=== PATIENT | female | born 1985 | race Caucasian/White ===

== ENCOUNTER 2019-11-25 10:18 | Observation (INO) ==
[2019-11-25] MEDS ORDERED: HYDROmorphone INJ 0.5 MG/0.5 ML SYR IV STA ×2 (11:15→15:48)
[2019-11-25] MEDS ORDERED: SODIUM CHLORIDE 0.9% 1000ML 1,000 ML IV ONE (11:15)
[2019-11-25] MEDS ORDERED: ONDANSETRON INJ 2 MG/ML 2 ML VIAL IV STA (11:15)
--- NOTE | 2019-11-25 11:22 | Emergency Department Note ---
History of Present Illness General Chief complaint: Kidney Stone Stated complaint: KIDNEY STONES History of Present Illness Maximum Pain Intensity: 10 This patient is a 34-year-old female who presents ambulatory to the emergency department for evaluation of severe bilateral flank pain for approximately 1 week. Patient was seen in [facility]. She was diagnosed with a kidney stone. A stent was placed on the left. She was told that she was going to have "surgery" on December 06. She was discharged home with Percocet. She has been taking the Percocet with no relief of the pain. She reports hematuria. No fever or chills. No nausea. Any movement seems to make the pain worse. Home Medications Home Medications Medication Instructions Recorded Confirmed Type L.acid-L.casei-B.bif-B.nicki-FOS 1 cap PO TID 11/25/19 11/25/19 History [Probiotic Blend] cholecalciferol (vitamin D3) 1,000 unit PO QDD 11/25/19 11/25/19 History [Vitamin D3] digestive enzymes 1 cap PO TID 11/25/19 11/25/19 History iron-vit C-vit [id number] acid 1 tab PO QAM 11/25/19 11/25/19 History oxycodone-acetaminophen [Percocet] 1 tab PO UD PRN 11/25/19 11/25/19 History phenazopyridine [Pyridium] 100 mg PO TID PRN 11/25/19 11/25/19 History Allergies Allergy/AdvReac Type Severity Reaction Status Date / Time iodine Allergy Unknown SKIN BLEEDS Unverified 11/25/19 13:12 nitrofurantoin Allergy Unknown HIVES Unverified 11/25/19 13:12 Past Med/Surg History Medical History No pertinent past medical history Social History Preferred Language: Estonian Communication Ability: Effective 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 Beliefs That Will Affect Care: None Current Living Situation: Family Other Information That Helps Us Care for You: No Feels Safe at Home: Yes Safety Concerns: Feels Safe At This Time Smoking Status: Light tobacco smoker Tobacco Type: cigarettes ; Cigarettes Per Day: 2-3 ; Do You Dip or Chew Tobacco: No ; Hx Alcohol Use: Yes Alcohol type: beer, wine and hard liquor Hx Substance Use: No Review of Systems A total of 10 systems reviewed and were otherwise negative Physical Exam Vital Signs Vital Signs - 24 hr 11/25/19 10:53 11/25/19 11:40 11/25/19 13:10 Temperature 36.9 C Temperature Source Oral Pulse Rate 101 H Pulse Rate [Left Finger] 73 65 Respiratory Rate 16 18 18 Blood Pressure [Left Arm] 139/89 128/81 Blood Pressure Mean [Left Arm] 105 96 Pulse Oximetry 100 100 99 Oxygen Delivery Method Room Air Room Air Room Air Sepsis Recent Fever Within 48 Hours No Sepsis New/Unexplained Change in Mental Status No Sepsis Action Taken by Nursing No Action Required 11/25/19 14:46 Temperature Temperature Source Pulse Rate Pulse Rate [Left Finger] 77 Respiratory Rate 18 Blood Pressure [Left Arm] 129/85 Blood Pressure Mean [Left Arm] 99 Pulse Oximetry 98 Oxygen Delivery Method Room Air Sepsis Recent Fever Within 48 Hours Sepsis New/Unexplained Change in Mental Status Sepsis Action Taken by Nursing Constitutional WD/WN, vitals as above Eyes EOM intact bilaterally ENMT external ear and nose normal, oropharynx normal Neck trachea midline Respiratory normal respiratory effort, lungs clear to auscultation Cardiovascular RRR, no murmur, no edema Gastrointestinal (Abdomen) CVA tenderness noted left greater than right. No guarding or rebound tenderness of the abdomen. Bowel sounds present in all 4 quadrants. Musculoskeletal no cyanosis or clubbing, extremities motor strength 5/5 Skin no rashes, warm and dry Neurologic Alert and oriented x3. No focal motor deficits. Psychiatric Acting appropriately Course Course Patient was seen and examined Vital signs including blood pressure were reviewed medications list was verified with patient Labs were obtained, and a saline lock was established Medications ordered Imaging performed and reviewed. Outside records reviewed. The case was discussed with urology The patient was reassessed and still uncomfortable. She was ordered more medications. We reviewed her results. She voiced understanding, and was in agreement with the disposition plan. The case was then discussed with the hospitalist service. They kindly agreed to evaluate the patient for likely inpatient management. Administered Medications Acetaminophen (Tylenol) 1,000 mg PO Q8H IRENE Stop: 12/25/19 16:29 Last Admin: 11/25/19 17:20 Dose: 1,000 mg Documented by: [id number] Bisacodyl (Dulcolax) 5 mg PO DAILY [facility] Stop: 12/25/19 16:04 Last Admin: 11/25/19 16:59 Dose: 5 mg Documented by: [id number] Lactated Ringer's (Lr) 1,000 mls @ 150 mls/hr IV .Q6H40M [facility] Stop: 11/26/19 16:14 Last Admin: 11/25/19 17:00 Dose: 150 mls/hr Documented by: [id number] Ketorolac Tromethamine (Toradol) 30 mg IV Q6H PRN PRN Reason: Pain Stop: 11/30/19 14:50 Last Admin: 11/25/19 20:31 Dose: 30 mg Documented by: [id number] Ondansetron HCl (Zofran) 4 mg IV Q4H PRN PRN Reason: Nausea And Vomiting Stop: 12/25/19 14:50 Last Admin: 11/25/19 20:20 Dose: 4 mg Documented by: [id number] Phenazopyridine HCl (Pyridium) 100 mg PO TID [facility] Stop: 12/25/19 15:14 Last Admin: 11/25/19 17:20 Dose: 100 mg Documented by: [id number] Tamsulosin HCl (Flomax) 0.4 mg PO QAM [facility] Stop: 12/25/19 14:59 Last Admin: 11/25/19 17:20 Dose: 0.4 mg Documented by: [id number] Discontinued Medications Bisacodyl (Dulcolax) 10 mg [place] NOW STA Stop: 11/25/19 15:22 Last Admin: 11/25/19 15:51 Dose: 10 mg Documented by: [id number] Hydromorphone HCl (Dilaudid) 0.5 mg IV NOW STA Stop: 11/25/19 11:16 Last Admin: 11/25/19 11:29 Dose: 0.5 mg Documented by: [id number] Hydromorphone HCl (Dilaudid) Confirm Administered Dose 1 mg .ROUTE .STK-MED ONE Stop: 11/25/19 15:11 Last Admin: 11/25/19 15:12 Dose: 1 mg Documented by: [id number] Hydromorphone HCl (Dilaudid) 0.5 mg IV NOW STA Stop: 11/25/19 15:49 Last Admin: 11/25/19 16:59 Dose: 0.5 mg Documented by: [id number] Sodium Chloride (Nss 1000ml) 1,000 mls @ 999 mls/hr IV .Q1H1M ONE Stop: 11/25/19 12:15 Last Infusion: 11/25/19 11:30 Dose: 0 mls/hr Documented by: [id number] Admin: 11/25/19 11:29 Dose: 999 mls/hr Documented by: [id number] Ketorolac Tromethamine (Toradol) 30 mg IV NOW STA Stop: 11/25/19 12:08 Last Admin: 11/25/19 12:14 Dose: 30 mg Documented by: [id number] Ondansetron HCl (Zofran) 4 mg IV NOW STA Stop: 11/25/19 11:16 Last Admin: 11/25/19 11:29 Dose: 4 mg Documented by: [id number] Phenazopyridine HCl (Pyridium) 200 mg PO NOW STA Stop: 11/25/19 15:49 Last Admin: 11/25/19 17:20 Dose: Not Given Documented by: [id number] Medical Decision Making Medical Records Attestation: I reviewed the patient's medical records. Home Medications Current Medication List: was personally reviewed by me Laboratory Data Attestation: I reviewed the patient's lab results. Result diagrams: 11/25/19 11:38 11/25/19 11:38 Lab Results 11/25/19 11/25/19 11/25/19 Range/Units 11:38 11:38 11:38 WBC 5.26 (4.8-10.8) K/uL RBC 4.21 (4.2-5.4) M/uL Hgb 12.0 (12.0-16.0) g/dL Hct 36.5 L (37-47) % MCV 86.7 (80-100) fL MCH 28.5 (25-34) pg MCHC 32.9 (32-36) g/dL RDW Std Deviation 40.8 (36.4-46.3) fL RDW Coeff of Marixa 12.8 (11.5-14.5) % Plt Count 200 (130-400) K/uL MPV 10.1 (7.4-10.4) fL Immature Gran % (Auto) 0.4 % Neut % (Auto) 50.8 % Lymph % (Auto) 30.8 % Dewitt % (Auto) 14.4 % Eos % (Auto) 3.0 % Baso % (Auto) 0.6 % Immature Gran # (Auto) 0.02 (0.00-0.02) K/uL Neut # (Auto) 2.67 (1.4-6.5) K/uL Lymph # (Auto) 1.62 (1.2-3.4) K/uL Dewitt # (Auto) 0.76 H (0.11-0.59) K/uL Eos # (Auto) 0.16 (0-0.5) K/uL Baso # (Auto) 0.03 (0-0.2) K/uL Sodium 138 (136-145) mmol/L Potassium 3.7 (3.5-5.1) mmol/L Chloride 109 H (98-107) mmol/L Carbon Dioxide 22 (21-32) mmol/L Anion Gap 7.0 (3-11) BUN 7 (7-18) mg/dl Creatinine 0.60 (0.6-1.2) mg/dl Est Cr Clr Drug Dosing 129.8 ml/min Est GFR ( Amer) 138.8 Est GFR (Non-Af Amer) 119.8 BUN/Creatinine Ratio 11.9 (10-20) Glucose 97 (70-99) mg/dl Calcium 8.9 (8.5-10.1) mg/dl Total Bilirubin 0.3 (0.2-1) mg/dl AST 15 (15-37) U/L ALT 21 (12-78) U/L Alkaline Phosphatase 66 (45-117) U/L Total Protein 7.8 (6.4-8.2) gm/dl Albumin 3.8 (3.4-5.0) gm/dl Globulin 4.0 (2.5-4.0) gm/dl Albumin/Globulin Ratio 1.0 (0.9-2) Urine Color Urine Appearance (Clear) Urine pH (4.5-7.5) Ur Specific [place] (1.000-1.030) Urine Protein (Negative) Urine Glucose (UA) (Negative) Urine Ketones (Negative) Urine Blood (Negative) Urine Nitrite (Negative) Urine Bilirubin (Negative) Urine Urobilinogen (Negative) Ur Leukocyte Esterase (Negative) Urine WBC (Auto) (0-5) /hpf Urine RBC (Auto) (0-4) /hpf U Hyaline Cast (Auto) (0-5) /lpf U Epithel Cells (Auto) (0-5) /lpf Urine Bacteria (Auto) (Negative) Urine Test Negative (Negative) 11/25/19 Range/Units 11:38 WBC (4.8-10.8) K/uL RBC (4.2-5.4) M/uL Hgb (12.0-16.0) g/dL Hct (37-47) % MCV (80-100) fL MCH (25-34) pg MCHC (32-36) g/dL RDW Std Deviation (36.4-46.3) fL RDW Coeff of Marixa (11.5-14.5) % Plt Count (130-400) K/uL MPV (7.4-10.4) fL Immature Gran % (Auto) % Neut % (Auto) % Lymph % (Auto) % Dewitt % (Auto) % Eos % (Auto) % Baso % (Auto) % Immature Gran # (Auto) (0.00-0.02) K/uL Neut # (Auto) (1.4-6.5) K/uL Lymph # (Auto) (1.2-3.4) K/uL Dewitt # (Auto) (0.11-0.59) K/uL Eos # (Auto) (0-0.5) K/uL Baso # (Auto) (0-0.2) K/uL Sodium (136-145) mmol/L Potassium (3.5-5.1) mmol/L Chloride (98-107) mmol/L Carbon Dioxide (21-32) mmol/L Anion Gap (3-11) BUN (7-18) mg/dl Creatinine (0.6-1.2) mg/dl Est Cr Clr Drug Dosing ml/min Est GFR ( Amer) Est GFR (Non-Af Amer) BUN/Creatinine Ratio (10-20) Glucose (70-99) mg/dl Calcium (8.5-10.1) mg/dl Total Bilirubin (0.2-1) mg/dl AST (15-37) U/L ALT (12-78) U/L Alkaline Phosphatase (45-117) U/L Total Protein (6.4-8.2) gm/dl Albumin (3.4-5.0) gm/dl Globulin (2.5-4.0) gm/dl Albumin/Globulin Ratio (0.9-2) Urine Color Dark Yellow Urine Appearance Clear (Clear) Urine pH 6.5 (4.5-7.5) Ur Specific [place] 1.008 (1.000-1.030) Urine Protein Negative (Negative) Urine Glucose (UA) Negative (Negative) Urine Ketones Negative (Negative) Urine Blood 3+ H (Negative) Urine Nitrite Positive A (Negative) Urine Bilirubin Negative (Negative) Urine Urobilinogen Negative (Negative) Ur Leukocyte Esterase 1+ H (Negative) Urine WBC (Auto) 1-5 (0-5) /hpf Urine RBC (Auto) 10-30 H (0-4) /hpf U Hyaline Cast (Auto) 0 (0-5) /lpf U Epithel Cells (Auto) 20-30 H (0-5) /lpf Urine Bacteria (Auto) Negative (Negative) Urine Test (Negative) Imaging Data Attestation: I personally reviewed and interpreted this imaging study as follows: Radiologist's Impression: CT abdomen and pelvis without contrast 1. There is a 7 mm stone within the proximal left ureter adjacent to the ureteral stent. However, no left-sided hydronephrosis. 2. Bilateral nephrolithiasis. 3. The left ureteral stent appears in good position. 4. No definite bowel wall thickening or obstruction. ACT 112: Negative or not required by law. Electronically signed by: Rex Han M.D. 11/25/2019 12:47 PM Dictated: 11/25/19 1240 Transcribed: 11/25/19 1240 Prescription Drug Monitoring [place] Drug Monitoring Program reviewed and no issues identified Blood Pressure Blood Pressure Findings: Normal blood pressure MDM Narrative This patient is a 34-year-old female who presents to the emergency department with ongoing flank pain. On exam, she was significantly uncomfortable with CVA tenderness. She was not febrile. Her labs are fairly unremarkable. I did not find antibiotic therapy necessary as the patient does not have any leukocytosis. She is not febrile. . Imaging was performed and reviewed. The patient has a left ureteral stent, in addition to a large proximal stone. The patient's pain was not controlled in the emergency department. I did not feel comfortable sending her home. Urology and the hospitalist service were consulted for likely inpatient management. Impression & Plan Calculus, ureteral Discharge Plan Visit Data *Final* Discharge Date/Time: 11/25/19 15:56 Chief Complaint: Kidney Stone Stated Complaint: KIDNEY STONES ED Provider: Mark Richards ED Midlevel Provider: Faina Marie Discharge Problem: Calculus, ureteral Patient Disposition: Admitted As Inpatient Condition: Fair Discharge Instructions Interventions: ED Discharge Assessment Last Done: 11/25/19 15:56
[2019-11-25 11:51] LABS: Basophils # (auto) 0.03 K/uL (0-0.2); Basophils % (auto) 0.6 %; Eosinophils # (auto) 0.16 K/uL (0-0.5); Hematocrit (blood only) 36.5 % (37-47); Immature Granulocytes # (auto) 0.02 K/uL (0.00-0.02); Immature Granulocytes % (auto) 0.4 %; Lymphocytes # (auto) 1.62 K/uL (1.2-3.4); Lymphocytes % (auto) 30.8 %; Mean Corpuscular Hemoglobin 28.5 pg (25-34); Mean Corpuscular Hgb Conc 32.9 g/dL (32-36); Mean Corpuscular Volume 86.7 fL (80-100); Mean Platelet Volume 10.1 fL (7.4-10.4); Monocytes # (auto) 0.76 K/uL (0.11-0.59); Monocytes % (auto) 14.4 %; Neutrophils # (auto) 2.67 K/uL (1.4-6.5); Neutrophils % (auto) 50.8 %; Platelet Count 200 K/uL (130-400); RDW Coefficient of Variation 12.8 % (11.5-14.5); RDW Standard Deviation 40.8 fL (36.4-46.3); Red Blood Count 4.21 M/uL (4.2-5.4); White Blood Count 5.26 K/uL (4.8-10.8)
[2019-11-25 11:52] LABS: Pregnancy Test, Urine Negative (Negative)
[2019-11-25 11:54] LABS: Appearance Urine Clear (Clear); Bilirubin Urine Negative (Negative); Blood Urine 3+ (Negative); Color Urine Dark Yellow; Glucose Urine UA Negative (Negative); Ketones Urine Negative (Negative); Leukocyte Esterase Urine 1+ (Negative); Nitrite Urine Positive (Negative); Protein Urine Negative (Negative); Specific Gravity Urine 1.008 (1.000-1.030); Urobilinogen Urine Negative (Negative); pH Urine 6.5 (4.5-7.5)
[2019-11-25] MEDS ORDERED: KETOROLAC 30 MG/ML VIAL IV STA (12:07)
[2019-11-25 12:08] LABS: Albumin Level 3.8 gm/dl (3.4-5.0); BUN Creatinine Ratio 11.9 (10-20); Calcium 8.9 mg/dl (8.5-10.1); Creatinine Clr Calc Pharmacy 129.8 ml/min; Est GFR (African American) 138.8; Est GFR (Non-African American) 119.8; Potassium 3.7 mmol/L (3.5-5.1)
[2019-11-25 12:11] LABS: Bilirubin,Total 0.3 mg/dl (0.2-1); Total Protein 7.8 gm/dl (6.4-8.2)
[2019-11-25 12:39] LABS: Bacteria Urine Automated Negative (Negative); Cast Urine Automated 0 /lpf (0-5); Epithelial Cell Urine Auto 20-30 /lpf (0-5)
--- NOTE | 2019-11-25 12:48 | CT Scan Report ---
ABDOMEN AND PELVIS CT WITHOUT CONTRAST CT DOSE: 908.04 mGycm HISTORY: flank pain hx stones/stent TECHNIQUE: Multiaxial CT images of the abdomen and pelvis were performed without contrast. A dose lo wering technique was utilized adhering to the principles of ALARA. COMPARISON STUDY: Abdomen and pelvis CT 04/14/2018. FINDINGS: Faint tiny subpleural densities within the right lower lobe. This is nonspecific but favors scarring or atelectasis. The left lung base is clear. No pneumoperitoneum. No pneumatosis. Left-side d sacroiliac screws are again noted. Tiny fat-containing umbilical hernia. The unenhanced liver, gall bladder, spleen, adrenal glands, and pancreas are unremarkable. No retroperitoneal lymphadenopathy. T he uterus and bilateral adnexa are within normal limits. There is a 7 mm stone within the right kidne y. No right ureteral calculi or right-sided hydronephrosis. The bladder is unremarkable. Multiple lef t renal calculi with the largest measuring 6 mm in the lower pole. A left ureteral stent appears in g ood position. Punctate focus of gas within the left renal collecting system is likely due to the uret eral stent. There is a 7 mm stone within the proximal left ureter adjacent to the ureteral stent. How ever, no left-sided hydronephrosis. Mild urothelial thickening within the proximal left ureter. This is likely reactive. No bowel wall thickening or obstruction. The appendix is surgically absent. IMPRESSION: 1. There is a 7 mm stone within the proximal left ureter adjacent to the ureteral stent. However, no left-sided hydronephrosis. 2. Bilateral nephrolithiasis. 3. The left ureteral stent appears in good position. 4. No definite bowel wall thickening or obstruction. ACT 112: Negative or not required by law. Electronically signed by: Rex Han M.D. 11/25/2019 12:47 PM
[2019-11-25] MEDS ORDERED: ACETAMINOPHEN 325 MG TAB PO PRN (14:51)
[2019-11-25] MEDS ORDERED: HYDROmorphone INJ 1 MG/ML SYRINGE ONE (15:10)
--- NOTE | 2019-11-25 15:17 | History & Physical Report ---
Date of Service November 25, 2019 Assessment & Plan (1) Intractable pain: (2) Kidney stones: (3) S/P ureteral stent placement: (4) Bilateral nephrolithiasis: - Admit to med surg with observation - Pain control with dilaudid, toradol 30 mg IV prn, acetaminophen 1000 mg Q8H, pyridium, and flomax to start now - LR with 150 mg IV x 1 day for now - Allow regular diet and zofran prn - CT abd/pelvis reviewed: 7 mm stone within the right kidney. No right ureteral calculi or right-sided hydronephrosis. The bladder is unremarkable. Multiple left renal calculi with the largest measuring 6 mm in the lower pole. A left ureteral stent appears in good position. Punctate focus of gas within the left renal collecting system is likely due to the ureteral stent. There is a 7 mm stone within the proximal left ureter adjacent to the ureteral stent. However, no left-sided hydronephrosis. Mild urothelial thickening within the proximal left ureter. This is likely reactive. No bowel wall thickening or obstruction. The appendix is surgically absent. -Urology consulted, Dr. Granados -Follow UA -Check urine test to r/o (5) Benny's disease: - Noted (6) PCOS (polycystic ovarian syndrome): -Patient was scheduled to have tubal ligation as an outpatient however she canceled it due to increased pain secondary to the ureteral stent -Stable patient also notes this may be beginning of menstrual period starting, increasing cramping, heat and ice application prn (7) Tobacco use: -Cessation encouraged, patient smokes 2 to 4 cigarettes/day socially, no need for nicotine patch (8) Constipation: - Ordered dulcolax suppository as no BM in 5 days, continue daily stool softener while on pain medications. (9) DVT prophylaxis: -Ambulatory CODE STATUS full code Disposition: Patient from home, likely can be discharged within 1 day pending pain improvement History of Present Illness Primary Care Provider: Reese Mitchell This is a 34-year-old female with PMHx significant for PCOS, significant [place] heavy menstrual periods, nephrolithiasis, Benny's disease, current smoker of 2 cigarettes per day, with history of appendectomy who presents due to intractable pain. Pt underwent Left ureteral stent placement on 11/21/[address] Granados in [place] [facility]. Patient reports that she had pain since stent placement, but that it worsened 3 days ago. She was sent home with a prescription for Percocet and Pyridium, has been taking the medication, but reports her pain is not well controlled with either of these. She has been using [id number] Azo for the last 2 days because her symptoms have been so severe. Her last BM was over 5 days ago and reports that she had her last menstrual period was October 26. She reports that she was supposed to have a tubal ligation today at a different facility for history of PCOS/severe menorrhagia. She canceled the procedure a few days ago due to her significant pain. Patient attempted to contact her urologist, was awaiting response, however her pain worsened therefore she presented to the ER. Allergies Allergy/AdvReac Type Severity Reaction Status Date / Time iodine Allergy Unknown SKIN BLEEDS Unverified 11/25/19 13:12 nitrofurantoin Allergy Unknown HIVES Unverified 11/25/19 13:12 Home Medications Home Medications Medication Instructions Recorded Confirmed Type L.acid-L.casei-B.bif-B.nicki-FOS 1 cap PO TID 11/25/19 11/25/19 History [Probiotic Blend] cholecalciferol (vitamin D3) 1,000 unit PO QDD 11/25/19 11/25/19 History [Vitamin D3] digestive enzymes 1 cap PO TID 11/25/19 11/25/19 History iron-vit C-vit [id number] acid 1 tab PO QAM 11/25/19 11/25/19 History oxycodone-acetaminophen [Percocet] 1 tab PO UD PRN 11/25/19 11/25/19 History phenazopyridine [Pyridium] 100 mg PO TID PRN 11/25/19 11/25/19 History Past Med/Surg History Medical History No pertinent past medical history Social History Preferred Language: Macedonian Communication Ability: Effective Spd Manager Required: No Beliefs That Will Affect Care: None Current Living Situation: Family Other Information That Helps Us Care for You: No Feels Safe at Home: Yes Safety Concerns: Feels Safe At This Time Smoking Status: Light tobacco smoker Tobacco Type: cigarettes ; Cigarettes Per Day: 2-3 ; Do You Dip or Chew Tobacco: No ; Hx Alcohol Use: Yes Alcohol type: beer, wine and hard liquor Hx Substance Use: No Review of Systems Review of Systems: Constitutional: No fever, sweats. + chills Eyes: No diplopia, no worsening or blurred vision ENT: normal hearing, no trouble swallowing Respiratory: No cough, sputum, dyspnea at rest or on exertion Cardiovascular: No chest pain, tightness or palpitations Abdomen: + Moderate to severe pain in left upper abdomen radiating down her flank into the left hip, also pain in the right flank/low back area, + nausea, no vomiting. + constipation Musculoskeletal: No joint pain, calf pain, swelling Neurologic: No weakness, numbness/tingling, or balance problems Psychiatric: No anxiety or depression Skin: No rash or itch Physical Exam Physical Exam: General: awake, alert, + moderate distress, standing up throughout the exam Head: Normocephalic, atraumatic ENT: PERRL, EOMI, no pharyngeal exudate, mucous membranes moist Chest: Clear to auscultation, on room air, no adventitious breath sounds Cardiac: Regular rate and rhythm, no murmur, no JVD, normal peripheral pulses, good capillary refill Abdominal: NABS x 4 quadrants, soft, + distended, +tender to palpation in all quadrants, no rebound or guarding Extremities: Normal inspection, no peripheral edema or erythema, calfs nontender to palpation Psych: Normal mood and affect Neuro: AAO x 3, strength intact bilaterally and related 5/5, no motor deficits, speech is clear, no peripheral sensory deficits Results & Data Vital Signs (Past 12 Hours) Vital Signs Temp Pulse Pulse Resp BP Pulse Ox 11/25/19 14:46 77 18 129/85 98 11/25/19 13:10 65 18 128/81 99 11/25/19 11:40 73 18 139/89 100 11/25/19 10:53 36.9 C 101 H 16 100 Diagnostic Findings ABDOMEN AND PELVIS CT WITHOUT CONTRAST CT DOSE: 908.04 mGycm HISTORY: flank pain hx stones/stent TECHNIQUE: Multiaxial CT images of the abdomen and pelvis were performed without contrast. A dose lowering technique was utilized adhering to the principles of ALARA. COMPARISON STUDY: Abdomen and pelvis CT 04/14/2018. FINDINGS: Faint tiny subpleural densities within the right lower lobe. This is nonspecific but favors scarring or atelectasis. The left lung base is clear. No pneumoperitoneum. No pneumatosis. Left-sided sacroiliac screws are again noted. Tiny fat-containing umbilical hernia. The unenhanced liver, gallbladder, spleen, adrenal glands, and pancreas are unremarkable. No retroperitoneal lymphadenopat hy. The uterus and bilateral adnexa are within normal limits. There is a 7 mm stone within the right kidney. No right ureteral calculi or right-sided hydronephrosis. The bladder is unremarkable. Multiple left renal calculi with the largest measuring 6 mm in the lower pole. A left ureteral stent appears in good position. Punctate focus of gas within the left renal collecting system is likely due to the ureteral stent. There is a 7 mm stone within the proximal left ureter adjacent to the ureteral stent. However, no left-sided hydronephrosis. Mild urothelial thickening within the proximal left ureter. This is likely reactive. No bowel wall thickening or obstruction. The appendix is surgically absent. IMPRESSION: 1. There is a 7 mm stone within the proximal left ureter adjacent to the ureter al stent. However, no left-sided hydronephrosis. 2. Bilateral nephrolithiasis. 3. The left ureteral stent appears in good position. 4. No definite bowel wall thickening or obstruction. Code Status & VTE Plan Code Status Full code Supervising Physician Co-Signing Physician Notes Patient seen and examined, chart reviewed, case discussed with TORSTEN Patel and I agree with her assessment and plan as documented above. Briefly, patient is a 34yo C female with bilateral nephrolithiasis. 7mm stone in the right kidney. Multiple left renal calculi largest being 6mm. Patient with left ureteral stent in place which is in good position. 7mm stone in the proximal left ureter adjacent to the ureteral stent. No hydronephrosis. Patient with intractable pain. On exam she is uncomfortable, unable to sit still Skin - no rash HEENT - NC/AT, PERRL, EOMI, MMM, Neck supple, No JVD Heart - +S1/S2, regular, no m/r/g Lungs - CTA Abd - +BS, soft, NT/ND Ext - No edema Labs and images reviewed. Assessment/Plan - -IVF, pain and nausea control -Urology consultation appreciated -Flomax -Strain urine -Remainder of plan as above PG Care Time/CCT Total # of Minutes Spent Total Time Spent with Patient: Total time spent is greater than 50% in coordination of care (as documented) at patient's floor/unit and/or counseling patient: Coding Level of Care Code 86445 OBS Care - Level 3 Diagnoses Intractable pain R52 Kidney stones N20.0 S/P ureteral stent placement Z96.0 Bilateral nephrolithiasis N20.0 Benny's disease E06.3 PCOS (polycystic ovarian syndrome) E28.2 Tobacco use Z72.0 Constipation K59.00 DVT prophylaxis Z29.9
[2019-11-25] MEDS ORDERED: bisacodyL 10 MG SUPP PR STA (15:21)
[2019-11-25] MEDS ORDERED: PHENAZOPYRIDINE HCL 200 MG TAB PO STA (15:48)
[2019-11-25] MEDS: bisacodyL 5 MG TABEC PO SCH (16:59)
[2019-11-25] MEDS: LACTATED RINGER'S 1,000 ML IV SCH (17:00)
[2019-11-25] MEDS: TAMSULOSIN HCL 0.4 MG CAP PO SCH (17:20)
[2019-11-25] MEDS: ACETAMINOPHEN 500 MG TAB PO SCH (17:20)
[2019-11-25] MEDS: PHENAZOPYRIDINE HCL 100 MG TAB PO SCH ×2 (17:20→21:35)
[2019-11-25] MEDS ORDERED: INFLUENZA VIRUS QUAD VACCINE 0.5 ML SYR IM ONE (18:39)
[2019-11-25] MEDS ORDERED: INFLUENZA ADMINISTRATION CHARGE ONE (18:39)
[2019-11-25] MEDS: ONDANSETRON INJ 2 MG/ML 2 ML VIAL IV PRN (20:20)
[2019-11-25] MEDS: KETOROLAC 30 MG/ML VIAL IV PRN (20:31)
[2019-11-25] MEDS: LACTOBACILLUS ACIDOPHILUS (FLORANEX) TAB PO SCH (21:35)
[2019-11-25] MEDS: HYDROmorphone INJ 0.5 MG/0.5 ML SYR IV PRN (23:51)
[2019-11-26] MEDS: ACETAMINOPHEN 500 MG TAB PO SCH ×4 (00:27→23:56)
[2019-11-26] MEDS: LACTATED RINGER'S 1,000 ML IV SCH ×3 (00:27→12:15)
[2019-11-26] MEDS: ONDANSETRON INJ 2 MG/ML 2 ML VIAL IV PRN ×2 (00:28→07:23)
[2019-11-26] MEDS: HYDROmorphone INJ 0.5 MG/0.5 ML SYR IV PRN (07:15)
--- NOTE | 2019-11-26 08:01 | Urology Consultation ---
Date of Consultation November 26, 2019 Assessment & Plan (1) Calculus, ureteral: Occasionally there are patients that do not tolerate stents very well. She has a large left ureteral stone. Options for mgmt include continued medical treatment of pain vs OR today for cysto, left uscope, laser litho of stone, and stent exchange. Pt would like to proceed with surgery. Will try to place a softer/thinner stent after the procedure to see if that is better tolerated. (2) S/P ureteral stent placement: History of Present Illness Attending Physician: Yolanda Hudson MD 34y/o female with h x of kidney stones presented to the ED with signif left flank pain. She has a long hx of stones and has under gone ESWl with stents in the past. She recently was seen in [place] with an obstructing prox left ureteral stone measuring 7mm. A stent was placed with plans to return to OR on 12/06 for Uscope and laser litho. Ever since the stent has been in place she has had severe pain, unable to work. She also reports constipation and worsening menstrual cramps. She tried to control pain with Percocet and Pyridium but these were not helping. She presented to the ER. CT scan done. That showed 7mm prox ureteral stone on the left. Stent in place. Mult b/l non obst stones. She was admitted for pain control. Urology consulted. Allergies Allergy/AdvReac Type Severity Reaction Status Date / Time iodine Allergy Unknown SKIN BLEEDS Unverified 11/25/19 13:12 nitrofurantoin Allergy Unknown HIVES Unverified 11/25/19 13:12 Home Medications Home Medications Medication Instructions Recorded Confirmed Type L.acid-L.casei-B.bif-B.nicki-FOS 1 cap PO TID 11/25/19 11/25/19 History [Probiotic Blend] cholecalciferol (vitamin D3) 1,000 unit PO QDD 11/25/19 11/25/19 History [Vitamin D3] digestive enzymes 1 cap PO TID 11/25/19 11/25/19 History iron-vit C-vit [id number] acid 1 tab PO QAM 11/25/19 11/25/19 History oxycodone-acetaminophen [Percocet] 1 tab PO UD PRN 11/25/19 11/25/19 History phenazopyridine [Pyridium] 100 mg PO TID PRN 11/25/19 11/25/19 History Patient History Medical History No pertinent past medical history Social History Preferred Language: Romanian Communication Ability: Effective Deputy Director Of Nursing Required: No Beliefs That Will Affect Care: None Current Living Situation: Family Other Information That Helps Us Care for You: No Feels Safe at Home: Yes Safety Concerns: Feels Safe At This Time Smoking Status: Light tobacco smoker Tobacco Type: cigarettes ; Cigarettes Per Day: 2-3 ; Do You Dip or Chew Tobacco: No ; Hx Alcohol Use: Yes Alcohol type: beer, wine and hard liquor Hx Substance Use: No Review of Systems Review of Systems: All systems reviewed & are unremarkable except as noted in HPI & below Genitourinary: + urinary frequency, + flank pain, + dysmenorrhea and + abnormal vaginal bleeding Physical Exam Constitutional: WD/WN, vitals as above Eyes: PERRL, conjunctivae normal, anicteric sclerae Neck: trachea midline Respiratory: normal respiratory effort, lungs clear to auscultation Cardiovascular: RRR, no murmur, no edema Gastrointestinal (Abdomen): normal bowel sounds, soft, nontender, no hepatosplenomegaly Skin: no rashes, warm and dry Neurologic: awake Psychiatric: A+Ox3, euthymic affect Genitourinary: no vaginal lesions, no adnexal mass Lymphatic: no cervical or axillary lymphadenopathy Results & Data Vital Signs (Past 12 Hours) Vital Signs Temp Pulse Resp BP Pulse Ox 11/25/19 23:00 36.6 C 74 20 134/91 100
[2019-11-26] MEDS: bisacodyL 5 MG TABEC PO SCH (08:06)
[2019-11-26] MEDS: TAMSULOSIN HCL 0.4 MG CAP PO SCH (08:06)
[2019-11-26] MEDS: LACTOBACILLUS ACIDOPHILUS (FLORANEX) TAB PO SCH ×3 (08:06→19:39)
[2019-11-26 08:40] LABS: Hematocrit (blood only) 34.5 % (37-47); Hemoglobin 11.4 g/dL (12.0-16.0); Mean Corpuscular Hemoglobin 28.7 pg (25-34); Mean Corpuscular Volume 86.9 fL (80-100); Mean Platelet Volume 10.3 fL (7.4-10.4); Platelet Count 173 K/uL (130-400); RDW Coefficient of Variation 12.7 % (11.5-14.5); RDW Standard Deviation 40.9 fL (36.4-46.3); Red Blood Count 3.97 M/uL (4.2-5.4); White Blood Count 4.41 K/uL (4.8-10.8)
--- NOTE | 2019-11-26 08:53 | Anesthesiology Consultation ---
Date of Service November 26, 2019 Assessment & Plan (1) Benny's disease: (2) PCOS (polycystic ovarian syndrome): (3) Kidney stones: (4) Bilateral nephrolithiasis: (5) S/P ureteral stent placement: (6) Tobacco use: (7) Calculus, ureteral: Chart Review Chart Review: Acceptable Risk for Surgery Consults Requested none ASA ASA2 Proposed Anesthesia Anesthesia Type: General and MAC Risk / Benefits Reviewed With: PT / POA / Parent / Guardian, Accepts Plan and Informed Consent Obtained History Surgery Operation Date: 11/26/19 08:00 Proposed Procedures p Laser Lithotripsy Abiodun Dye MD Height/Weight Height: 5 ft 2 in Weight: 79 kg Allergies Allergy/AdvReac Type Severity Reaction Status Date / Time iodine Allergy Unknown SKIN BLEEDS Unverified 11/25/19 13:12 nitrofurantoin Allergy Unknown HIVES Unverified 11/25/19 13:12 Medications Home Medications Medication Instructions Recorded Confirmed Last Taken L.acid-L.casei-B.bif-B.nicki-FOS 1 cap PO TID 11/25/19 11/25/19 11/24/19 [Probiotic Blend] cholecalciferol (vitamin D3) 1,000 unit PO QDD 11/25/19 11/25/19 11/24/19 [Vitamin D3] digestive enzymes 1 cap PO TID 11/25/19 11/25/19 11/24/19 iron-vit C-vit [id number] acid 1 tab PO QAM 11/25/19 11/25/19 11/24/19 oxycodone-acetaminophen [Percocet] 1 tab PO UD PRN 11/25/19 11/25/19 11/25/19 04:00 phenazopyridine [Pyridium] 100 mg PO TID PRN 11/25/19 11/25/19 11/25/19 07:30 Active Medications Generic Name Dose Route Start Last Admin Trade Name Freq PRN Reason Stop Dose Admin Acetaminophen 1,000 mg 11/25/19 16:30 11/26/19 08:06 Tylenol PO 12/25/19 16:29 Not Given Q8H IRENE Bisacodyl 5 mg 11/25/19 16:05 11/26/19 08:06 Dulcolax PO 12/25/19 16:04 Not Given DAILY IRENE Hydromorphone HCl 1 mg 11/25/19 14:49 11/26/19 07:15 Dilaudid IV 12/09/19 14:48 1 mg Q3H PRN Administration Pain Lactated Ringer's 1,000 mls @ 150 mls/hr 11/25/19 16:15 11/26/19 07:22 Lr IV 11/26/19 16:14 150 mls/hr .Q6H40M IRENE Administration Ketorolac Tromethamine 30 mg 11/25/19 14:51 11/25/19 20:31 Toradol IV 11/30/19 14:50 30 mg Q6H PRN Administration Pain Lactobacillus Acidophilus 4 tab 11/25/19 21:00 11/26/19 08:06 Floranex PO 12/25/19 20:59 Not Given TID IRENE Ondansetron HCl 4 mg 11/25/19 14:51 11/26/19 07:23 Zofran IV 12/25/19 14:50 4 mg Q4H PRN Administration Nausea And Vomiting Phenazopyridine HCl 100 mg 11/25/19 15:15 11/26/19 08:07 Pyridium PO 12/25/19 15:14 Not Given TID IRENE Tamsulosin HCl 0.4 mg 11/25/19 15:00 11/26/19 08:06 Flomax PO 12/25/19 14:59 Not Given QAM IRENE NPO Date Last Intake of Fluids: 11/25/19 Time Last Intake of Fluids: 19:00 Date Last Intake of Solids: 11/25/19 Time Last Intake of Solids: 19:00 Past Medical History Medical History Bilateral nephrolithiasis Calculus, ureteral (Inactive) Benny's disease PCOS (polycystic ovarian syndrome) Tobacco use Exercise / Class Metabolic Activity 1 > 8 Run/Swim/Ski/Tennis Past Surgical History Surgical History H/O removal of cyst History of lithotripsy Hx of appendectomy S/P ureteral stent placement Past Anesthesia History No Hx of Anesthesia Complications and No Family Hx of Anesthesia Complications History of PONV No Hx of PONV and Hx of Motion Sickness Social History Smoking Status: Light tobacco smoker tobacco type: cigarettes Smoking cigarettes per day: 2-3 Do You Dip or Chew Tobacco: No Hx Alcohol Use: Yes Alcohol type: beer, wine and hard liquor alcohol intake frequency: 0-2 drinks per day Hx Substance Use: No Physical Exam Vital Signs Last Vital Signs Temp 36.6 C 11/26/19 07:56 Pulse 85 11/26/19 07:56 Resp 16 11/26/19 07:56 BP 129/87 11/26/19 07:56 Pulse Ox 97 11/26/19 07:56 ENMT Mouth: no TMJ abnormality Thyromental Distance: > or= 3.5 Finger Breadths Mallampati Class: II Neck normal visual inspection and trachea midline; neck extension not limited Respiratory normal respiratory effort Auscultation: lungs clear to auscultation bilaterally Cardiovascular Rate/Rhythm: regular rate and regular rhythm Heart Sounds: no murmur Musculoskeletal Spine: normal cervical ROM Extremities: full ROM of extremities Neurologic moves all extremities Psychiatric Orientation: alert and oriented x 3 Testing Laboratory Results 11/26/19 08:04 11/26/19 08:04 Urine Color Dark Yellow 11/25/19 11:38 Urine Appearance Clear (Clear) 11/25/19 11:38 Urine pH 6.5 (4.5-7.5) 11/25/19 11:38 Ur Specific [place] 1.008 (1.000-1.030) 11/25/19 11:38 Urine Protein Negative (Negative) 11/25/19 11:38 Urine Glucose (UA) Negative (Negative) 11/25/19 11:38 Urine Ketones Negative (Negative) 11/25/19 11:38 Urine Nitrite Positive (Negative) A 11/25/19 11:38 Ur Leukocyte Esterase 1+ (Negative) H 11/25/19 11:38 Urine WBC (Auto) 1-5 /hpf (0-5) 11/25/19 11:38 Urine RBC (Auto) 10-30 /hpf (0-4) H 11/25/19 11:38 U Hyaline Cast (Auto) 0 /lpf (0-5) 11/25/19 11:38 U Epithel Cells (Auto) 20-30 /lpf (0-5) H 11/25/19 11:38 Urine Bacteria (Auto) Negative (Negative) 11/25/19 11:38 Urine Test Negative (Negative) 11/25/19 11:38 11/25/19 11:38 Urine Test Negative
[2019-11-26] MEDS: PHENAZOPYRIDINE HCL 100 MG TAB PO SCH ×3 (09:00→19:40)
[2019-11-26] MEDS ORDERED: DEXAMETHASONE SOD INJ 4 MG/ML VIAL ONE (09:02)
[2019-11-26] MEDS ORDERED: LIDOCAINE HCL 2% 2 ML VIAL/AMP(20MG/ML) INFIL ONE (09:02)
[2019-11-26] MEDS ORDERED: MIDAZOLAM HCL 1 MG/ML 2ML VIAL ONE (09:02)
[2019-11-26] MEDS ORDERED: ONDANSETRON INJ 2 MG/ML 2 ML VIAL ONE (09:02)
[2019-11-26] MEDS ORDERED: PROPOFOL IV EMULSION 10 MG/ML 20 ML VIAL IV ONE (09:02)
[2019-11-26] MEDS ORDERED: fentaNYL citrate 100 MCG/2 ML VIAL ONE (09:02)
[2019-11-26 09:09] LABS: Albumin Level 3.5 gm/dl (3.4-5.0); BUN Creatinine Ratio 11.3 (10-20); Calcium 8.4 mg/dl (8.5-10.1); Creatinine Clr Calc Pharmacy 127.7 ml/min; Est GFR (African American) 138.1; Est GFR (Non-African American) 119.1; Potassium 3.6 mmol/L (3.5-5.1)
[2019-11-26] MEDS ORDERED: IOTHALAMATE MEGLUMINE II 17.2% 250 ML VIAL ONE (09:10)
[2019-11-26 09:12] LABS: Albumin Globulin Ratio 0.9 (0.9-2); Bilirubin,Total 0.3 mg/dl (0.2-1); Globulin 3.8 gm/dl (2.5-4.0); Total Protein 7.3 gm/dl (6.4-8.2)
[2019-11-26] MEDS ORDERED: fentaNYL citrate 100 MCG/2 ML VIAL IV PRN (09:24)
[2019-11-26] MEDS ORDERED: PROMETHAZINE HCL 12.5 MG in SODIUM CHLORIDE 0.9% 50 ML IV PRN (09:24)
[2019-11-26] MEDS ORDERED: MEPERIDINE HCL 25 MG/ML CARP IV PRN (09:24)
[2019-11-26] MEDS ORDERED: SCOPOLAMINE 1.5 MG TDSY TD ONE (09:24)
[2019-11-26] MEDS ORDERED: ePHEDrine sulfate 50 MG/ML AMP IV PRN (09:24)
[2019-11-26] MEDS ORDERED: METOCLOPRAMIDE HCL INJ 5 MG/ML 2 ML VIAL IV PRN (09:24)
[2019-11-26] MEDS ORDERED: SCOPOLAMINE 1.5 MG TDSY ONE (09:24)
[2019-11-26] MEDS ORDERED: ONDANSETRON INJ 2 MG/ML 2 ML VIAL IV PRN (09:24)
[2019-11-26] MEDS ORDERED: MoRPHine SULFATE 10 MG/ML CARP/VIAL IV PRN (09:24)
[2019-11-26] MEDS ORDERED: ATROPINE SULFATE 0.1 MG/ML 10ML SYR IV PRN (09:24)
[2019-11-26] MEDS ORDERED: CEFAZOLIN 250 MG/ML 1 GM VIAL ONE (09:34)
[2019-11-26] MEDS ORDERED: CEFAZOLIN 1000MG 1,000 MG/7.5 ML SYR IV ONE (09:51)
--- NOTE | 2019-11-26 10:06 | Post Operative Brief Note ---
Immediate Post Op Note v1 Date of Surgery November 26, 2019 Pre & Post Diagnosis Operation Date: 11/26/19 09:45 Pre-Op Diagnosis: BILATERAL NEPHROLITHIASIS Post-Op Diagnosis: BILATERAL NEPHROLITHIASIS I identified the patient and participated in the time-out.: Yes Procedure Operation Date: 11/26/19 09:45 Actual Procedures p Cystoscopy, Left Ureteroscopy, Laser Lithotripsy, Stone Extraction, Left Ureteral Stent Exchange(Left) - Diallo Dye MD Surgeon Diallo Dye MD Supervisor Pressing Department none Estimated Blood Loss 5 Findings Consistent with Post-Op Diagnosis
--- NOTE | 2019-11-26 10:56 | Anesthesiology Progress Note ---
Date of Service November 26, 2019 Anesthesia Post Procedure Vital Signs Vital Signs: Temp Pulse Pulse Pulse Resp BP BP 11/26/19 10:50 81 19 127/77 11/26/19 10:40 103 H 15 124/95 11/26/19 10:30 98 H 20 134/82 11/26/19 10:20 89 12 133/87 11/26/19 10:14 36.0 C L 86 16 111/71 11/26/19 07:56 36.6 C 85 16 129/87 11/25/19 23:00 36.6 C 74 20 134/91 11/25/19 19:14 36.6 C 70 18 123/79 11/25/19 15:56 71 17 130/78 11/25/19 14:46 77 18 129/85 11/25/19 13:10 65 18 128/81 11/25/19 11:40 73 18 139/89 Pulse Ox 11/26/19 10:50 96 11/26/19 10:40 95 11/26/19 10:30 100 11/26/19 10:20 100 11/26/19 10:14 99 11/26/19 07:56 97 11/25/19 23:00 100 11/25/19 19:14 96 11/25/19 15:56 99 11/25/19 14:46 98 11/25/19 13:10 99 11/25/19 11:40 100 Pain Intensity Left Flank: Pain Intensity: 9 Transfer of Care Handoff Completed per policy Notes Mental Status: alert / awake / arousable and participated in evaluation Patient Amnestic to Procedure: Yes Nausea / Vomiting: adequately controlled Pain: adequately controlled Airway Patency, RR, SpO2: stable & adequate BP & HR: stable & adequate Hydration State: stable & adequate Anesthetic Complications: no major complications apparent and Pt Satisfied with anesthetic care
--- NOTE | 2019-11-26 10:58 | Fluoroscopy Report ---
FL retrograde includes kub HISTORY: RETROGRADE AND LEFT STENT INSERTION FLUOROSCOPY TIME: 11 seconds. FINDINGS: 3 fluoroscopic spot images were submitted for review. Retrograde opacification of the left renal collecting system with placement of a left ureteral stent. Filling defect within the proximal l eft ureter likely represents the patient's known left ureteral stone. Ureteral stent appears in good position. IMPRESSION: Fluoroscopy provided for left ureteral stent placement which appears in good position.. ACT 112: Negative or not required by law. Electronically signed by: Rex Han M.D. 11/26/2019 10:57 AM
--- NOTE | 2019-11-26 11:48 | Hospitalist Progress Note ---
Date of Service November 26, 2019 Assessment & Plan (1) Intractable pain: * Secondary to LEFT 7mm stone adjacent to stent, without evidence of hydronephrosis. Of note, also with 7mm stone within R kidney. Patient with significant history for kidney stones. Follows with Dr. Granados * Urology consult -- appreciate input * POD#0 s/p left lithotripsy and stent exchange with Dr. Dye -- will need follow up with Urology as outpatient * Continue Flomax 0.4mg, Pyridium 100mg TID * Scopolamine for nausea * Strain urine * Stone sent for analysis * Advance diet as tolerated * Strain urine (2) Kidney stones: * As above (3) S/P ureteral stent placement: * Initially scheduled to have removed on 12/06, but presented to ED secondary to intractable pain (4) Bilateral nephrolithiasis: * As above (5) Benny's disease: * Noted * TSH pending (6) PCOS (polycystic ovarian syndrome): * Patient was scheduled to have tubal ligation as an outpatient however she canceled it due to increased pain secondary to the ureteral stent * Stable patient also notes this may be beginning of menstrual period starting, increasing cramping, heat and ice application prn (7) Tobacco use: * Cessation encouraged, patient smokes 2 to 4 cigarettes/day socially, no need for nicotine patch (8) Constipation: * Dulcolax suppository as no BM in 5 days, continue daily stool softener while on pain medications. (9) Antiphospholipid antibody syndrome: * History of multiple miscarriages -- states she had been worked up by heme/onc in [place] (10) Anemia: * As reported by patient. Pre-op h/h 1236.5. 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 States her pain is much better controlled. Feels fatigued this morning secondary to not getting any sleep. Utilizing toradol which has been extremely helpful for her. She also states her nausea is almost completely gone with the application of the scopolamine. She states she has urinated since procedure, with some irritation, but similar to previous stent insertion. Tolerating diet without difficulty. States she feels she believes she should stay overnight to make sure her pain remains controlled and kidney function remains stable. Review of Systems Review of Systems: All systems reviewed & are unremarkable except as noted in HPI & below Constitutional: + chills; no fever Eyes: no diplopia and no worsening vision Ear, Nose, Mouth, Throat: no sore throat and no dysphagia Respiratory: no cough and no dyspnea Cardiovascular: no chest pain, no palpitations and no edema Gastrointestinal: + abdominal pain (left flank/upper abd pain), + nausea (decreased) and + constipation; no vomiting Genitourinary: + dysuria and + hematuria Integumentary: no rash and no lesions Neurologic: no numbness, no paresthesia and no headache(s) Psychiatric: no depression and no anxiety Physical Exam Constitutional: WD/WN, vitals as above no acute distress Eyes: + anicteric sclerae and PERRL Neck: trachea midline, no thyromegaly Respiratory: normal respiratory effort, lungs clear to auscultation Cardiovascular: Rate/Rhythm: regular rate and regular rhythm Heart Sounds: normal S1, normal S2 (loud S2) and + murmur Gastrointestinal (Abdomen): Inspection/Auscultation: abdomen normal to inspection and normal bowel sounds Percussion/Palpation: + abdomen tender (minimally tender left side) and abdomen soft; no guarding and abdomen not rigid Musculoskeletal: no cyanosis or clubbing, extremities motor strength 5/5 Skin: no rashes, warm and dry Neurologic: patellar DTR's 2+ bilat, sensation intact and PERRL, EOMI, accommodation nl, no face palsy, no dysarthria Psychiatric: A+Ox3, euthymic affect Genitourinary: no CVA tenderness Lymphatic: no cervical or axillary lymphadenopathy Results & Data ([facility]) Vital Signs (Past 12 Hours) Vital Signs Temp Pulse Pulse Resp BP Pulse Ox 11/26/19 11:40 36.5 C 71 18 143/83 H 100 11/26/19 11:25 36.6 C 80 16 115/79 97 11/26/19 11:10 74 21 115/80 99 02/01/20 11:00 36.3 C L 77 14 122/71 100 11/26/19 10:50 81 19 127/77 96 11/26/19 10:40 103 H 15 124/95 95 11/26/19 10:30 98 H 20 134/82 100 11/26/19 10:20 89 12 133/87 100 11/26/19 10:14 36.0 C L 86 16 111/71 99 11/26/19 07:56 36.6 C 85 16 129/87 97 Laboratory Results 11/26/19 11/26/19 11/26/19 Range/Units 10:01 08:04 08:04 WBC (4.8-10.8) K/uL RBC (4.2-5.4) M/uL Hgb (12.0-16.0) g/dL Hct (37-47) % MCV (80-100) fL MCH (25-34) pg MCHC (32-36) g/dL RDW Std Deviation (36.4-46.3) fL RDW Coeff of Marixa (11.5-14.5) % Plt Count (130-400) K/uL MPV (7.4-10.4) fL Sodium 138 (136-145) mmol/L Potassium 3.6 (3.5-5.1) mmol/L Chloride 109 H (98-107) mmol/L Carbon Dioxide 25 (21-32) mmol/L Anion Gap 5.0 (3-11) BUN 7 (7-18) mg/dl Creatinine 0.61 (0.6-1.2) mg/dl Est Cr Clr Drug Dosing 127.7 ml/min Est GFR ( Amer) 138.1 Est GFR (Non-Af Amer) 119.1 BUN/Creatinine Ratio 11.3 (10-20) Glucose 104 H (70-99) mg/dl Calcium 8.4 L (8.5-10.1) mg/dl Total Bilirubin 0.3 (0.2-1) mg/dl AST 15 (15-37) U/L ALT 20 (12-78) U/L Alkaline Phosphatase 56 (45-117) U/L Total Protein 7.3 (6.4-8.2) gm/dl Albumin 3.5 (3.4-5.0) gm/dl Globulin 3.8 (2.5-4.0) gm/dl Albumin/Globulin Ratio 0.9 (0.9-2) TSH Cancelled Pending Stone Source Pending Stone Weight Pending Stone Composition Pending Stone Composition 2 Pending Major Stone Nidus Pending 11/26/19 Range/Units 08:04 WBC 4.41 L (4.8-10.8) K/uL RBC 3.97 L (4.2-5.4) M/uL Hgb 11.4 L (12.0-16.0) g/dL Hct 34.5 L (37-47) % MCV 86.9 (80-100) fL MCH 28.7 (25-34) pg MCHC 33.0 (32-36) g/dL RDW Std Deviation 40.9 (36.4-46.3) fL RDW Coeff of Marixa 12.7 (11.5-14.5) % Plt Count 173 (130-400) K/uL MPV 10.3 (7.4-10.4) fL Sodium (136-145) mmol/L Potassium (3.5-5.1) mmol/L Chloride (98-107) mmol/L Carbon Dioxide (21-32) mmol/L Anion Gap (3-11) BUN (7-18) mg/dl Creatinine (0.6-1.2) mg/dl Est Cr Clr Drug Dosing ml/min Est GFR ( Amer) Est GFR (Non-Af Amer) BUN/Creatinine Ratio (10-20) Glucose (70-99) mg/dl Calcium (8.5-10.1) mg/dl Total Bilirubin (0.2-1) mg/dl AST (15-37) U/L ALT (12-78) U/L Alkaline Phosphatase (45-117) U/L Total Protein (6.4-8.2) gm/dl Albumin (3.4-5.0) gm/dl Globulin (2.5-4.0) gm/dl Albumin/Globulin Ratio (0.9-2) TSH Stone Source Stone Weight Stone Composition Stone Composition 2 Major Stone Nidus PG Care Time/CCT Total # of Minutes Spent Total Time Spent with Patient: Total time spent is greater than 50% in coordination of care (as documented) at patient's floor/unit and/or counseling patient: Coding Level of Care Code 65556 Subseq Hosp Care Lvl 2 Diagnoses Intractable pain R52 Kidney stones N20.0 S/P ureteral stent placement Z96.0 Bilateral nephrolithiasis N20.0 Benny's disease E06.3 PCOS (polycystic ovarian syndrome) E28.2 Tobacco use Z72.0 Constipation K59.00 Antiphospholipid antibody syndrome D68.61 Anemia D64.9 DVT prophylaxis Z29.9
[2019-11-26] MEDS: PHENAZOPYRIDINE HCL 100 MG TAB PO PRN (11:52)
[2019-11-26] MEDS: KETOROLAC 30 MG/ML VIAL IV PRN ×2 (11:55→19:36)
[2019-11-26 15:52] LABS: Thyroid Stimulating Hormone 4.51 uIu/ml (0.300-4.500)
[2019-11-26] MEDS: CHECK SCOPOLAMINE PATCH PLACEMENT SCH ×2 (16:00→23:52)
--- NOTE | 2019-11-26 21:20 | Operative Report ---
DATE OF OPERATION: 11/26/2019 ATTENDING OF RECORD: Diallo Dye MD. SURGEON: Diallo Dye MD. GLASS INSPECTOR: None. PREOPERATIVE DIAGNOSIS: Left ureteral calculus. POSTOPERATIVE DIAGNOSIS: Left ureteral calculus. PROCEDURES: Cystoscopy, left ureteroscopy, laser lithotripsy of stone, basket extraction of stone, left ureteral stent exchange. ANESTHESIA: General endotracheal. COMPLICATIONS: None. SPECIMENS: Ureteral stone. DRAINS: A 4.8 Sudanese x 26 cm ureteral stent with long strings. ESTIMATED BLOOD LOSS: Minimal. CONDITION: Stable. INDICATIONS: The patient is a 34-year-old female with a history of kidney stones. She recently presented with left-sided flank pain at [facility]. A left stent was placed. She had persistent pain ever since the stent was placed. This was intolerable for her and she presented to the Emergency Department for further evaluation. After discussion of treatment options, she elected for the above procedure. DESCRIPTION OF PROCEDURE: The patient was brought to the operative suite and positively identified, placed on the table in supine position. After the induction of general anesthesia, she was placed in dorsal lithotomy position. The genitalia were prepped and draped in sterile fashion. Preoperative antibiotics were administered and a timeout was performed. A rigid cystoscope was passed via the urethra into the bladder. The urethra was normal. The bladder showed evidence of some irritation from the stent. The stent was grasped with an alligator grasper and removed partially. A sensor wire was then passed through the stent up to the level of the renal pelvis. The stone was seen in the proximal ureter consistent with the 8 mm stone seen on previous imaging. A dual lumen catheter was then placed over the first wire and a retrograde pyelogram was performed again outlining the filling defect consistent with the stone and showing moderate hydronephrosis. A second wire was passed up to the level of the renal pelvis. The dual lumen catheter was removed and a ureteral access sheath was then passed over the second wire. The obturator was removed. The safety wire was still in place. A flexible ureteroscope was then passed through the access sheath up to the level of the stone. Using a 200 micron holmium laser fiber, the stone was fragmented into multiple smaller pieces. The larger pieces were extracted using a Christopher basket. The smaller pieces were evacuated out or flushed back into the kidney. At the end of the lasering, I did not see any stone fragments within the proximal ureter. There was some mild edema from the stone being impacted in that area, but the scope easily fit past the location of the stone into the renal pelvis. At this time, a final retrograde pyelogram was performed. This was unremarkable. The ureteral access sheath was then removed and a 4.8 Sudanese x 26 cm ureteral stent was placed with a good curl seen proximally and distally. The strings were left long and taped to the lower abdomen after the bladder was drained. The patient tolerated the procedure well. Sponge and needle counts were correct. Taken to the PACU in stable condition. I attest to the content of the Intraoperative Record and any orders documented therein. Any exception s are noted below.
[2019-11-27] MEDS: KETOROLAC 30 MG/ML VIAL IV PRN ×2 (02:36→10:45)
[2019-11-27] MEDS: HYDROmorphone INJ 0.5 MG/0.5 ML SYR IV PRN ×2 (03:05→06:15)
[2019-11-27] MEDS: PHENAZOPYRIDINE HCL 100 MG TAB PO PRN (06:15)
[2019-11-27 07:42] LABS: Hematocrit (blood only) 33.9 % (37-47); Hemoglobin 11.3 g/dL (12.0-16.0); Mean Corpuscular Hemoglobin 28.6 pg (25-34); Mean Corpuscular Hgb Conc 33.3 g/dL (32-36); Mean Corpuscular Volume 85.8 fL (80-100); Mean Platelet Volume 9.9 fL (7.4-10.4); Platelet Count 227 K/uL (130-400); RDW Coefficient of Variation 12.6 % (11.5-14.5); Red Blood Count 3.95 M/uL (4.2-5.4); White Blood Count 7.75 K/uL (4.8-10.8)
[2019-11-27] MEDS: CHECK SCOPOLAMINE PATCH PLACEMENT SCH (08:00)
[2019-11-27] MEDS: ACETAMINOPHEN 500 MG TAB PO SCH (08:01)
[2019-11-27] MEDS: TAMSULOSIN HCL 0.4 MG CAP PO SCH (08:02)
[2019-11-27] MEDS: PHENAZOPYRIDINE HCL 100 MG TAB PO SCH ×2 (08:02→15:29)
[2019-11-27] MEDS: bisacodyL 5 MG TABEC PO SCH (08:02)
[2019-11-27] MEDS: LACTOBACILLUS ACIDOPHILUS (FLORANEX) TAB PO SCH (08:03)
[2019-11-27 08:07] LABS: BUN Creatinine Ratio 13.6 (10-20); Calcium 8.8 mg/dl (8.5-10.1); Creatinine Clr Calc Pharmacy 114.8 ml/min; Est GFR (African American) 131.9; Est GFR (Non-African American) 113.8; Potassium 3.9 mmol/L (3.5-5.1)
[2019-11-27] MEDS ORDERED: OXYCODONE/ACETAMINOPHEN 5mg/325mg TAB PO PRN (08:14)
[2019-11-27] MEDS ORDERED: ENOXAPARIN INJ 40 MG/0.4 ML SYR SQ ONE (09:45)
--- NOTE | 2019-11-27 11:56 | Urology Progress Note ---
Date of Service No acute events overnight. Yesterday went to OR for cysto, uscope, laser litho, and stent change. Feeling better today. Not as much pain. Reports some urge, freq, dysuria, hematuria. No fevers. No chills. No N/V. November 27, 2019 Assessment & Plan (1) Kidney stones: Doing much better today s/p surgery. OK to DC home from Urology point of view. Can f/u in office this upcoming week for stent removal. (2) Intractable pain: Review of Systems Review of Systems: All systems reviewed & are unremarkable except as noted in HPI & below Physical Exam Constitutional: WD/WN, vitals as above Respiratory: normal respiratory effort, lungs clear to auscultation Cardiovascular: RRR, no murmur, no edema Skin: no rashes, warm and dry Results & Data Vital Signs (Past 12 Hours) Vital Signs Temp Pulse Resp BP Pulse Ox 11/27/19 07:18 36.6 C 56 L 20 120/78 97
--- NOTE | 2019-11-27 12:56 | Discharge Summary ---
Date of Service November 27, 2019 Admission HPI Per Admitting Provider This is a 34-year-old female with PMHx significant for PCOS, significant [place] heavy menstrual periods, nephrolithiasis, Benny's disease, current smoker of 2 cigarettes per day, with history of appendectomy who presents due to intractable pain. Pt underwent Left ureteral stent placement on 11/21/[address] Granados in [facility]. Patient reports that she had pain since stent placement, but that it worsened 3 days ago. She was sent home with a prescription for Percocet and Pyridium, has been taking the medication, but reports her pain is not well controlled with either of these. She has been using wkjy-ana-shotdzj Azo for the last 2 days because her symptoms have been so severe. Her last BM was over 5 days ago and reports that she had her last menstrual period was October 26. She reports that she was supposed to have a tubal ligation today at a different facility for history of PCOS/severe menorrhagia. She canceled the procedure a few days ago due to her significant pain. Patient attempted to contact her urologist, was awaiting response, however her pain worsened therefore she presented to the ER. Admission Exam Per Admitting Provider General: awake, alert, + moderate distress, standing up throughout the exam Head: Normocephalic, atraumatic ENT: PERRL, EOMI, no pharyngeal exudate, mucous membranes moist Chest: Clear to auscultation, on room air, no adventitious breath sounds Cardiac: Regular rate and rhythm, no murmur, no JVD, normal peripheral pulses, good capillary refill Abdominal: NABS x 4 quadrants, soft, + distended, +tender to palpation in all quadrants, no rebound or guarding Extremities: Normal inspection, no peripheral edema or erythema, calfs nontender to palpation Psych: Normal mood and affect Neuro: AAO x 3, strength intact bilaterally and related 5/5, no motor deficits, speech is clear, no peripheral sensory deficits Principal Diagnosis Intractable Pain with Nausea, Nephrolithiasis Discharge Exam Constitutional WD/WN, vitals as above no acute distress Eyes PERRL, conjunctivae normal, anicteric sclerae ENMT external ear and nose normal, oropharynx normal Neck trachea midline, no thyromegaly Respiratory normal respiratory effort, lungs clear to auscultation Cardiovascular Rate/Rhythm: regular rate and regular rhythm Heart Sounds: normal S1 and normal S2 (loud); no murmur Vessels: no JVD Extremities: no edema Gastrointestinal (Abdomen) Inspection/Auscultation: abdomen normal to inspection and normal bowel sounds; abdomen not distended Percussion/Palpation: + abdomen tender (minimally tender to palpation diffusely) and abdomen soft; no guarding and no hepatosplenomegaly Musculoskeletal no cyanosis or clubbing, extremities motor strength 5/5 Skin no rashes, warm and dry Neurologic PERRL, EOMI, accommodation nl, no face palsy, no dysarthria Psychiatric A+Ox3, euthymic affect Lymphatic no cervical or axillary lymphadenopathy Discharge Data Allergies Allergy/AdvReac Type Severity Reaction Status Date / Time iodine Allergy Unknown SKIN BLEEDS Unverified 11/25/19 13:12 nitrofurantoin Allergy Unknown HIVES Unverified 11/25/19 13:12 Consultations 11/25/19 14:49 Consult Case Management - Discharge Planning Routine Consult Urology Routine 11/25/19 15:20 ED Decision to Admit Stat Procedures Performed Operation Date: 11/26/19 09:45 Actual Procedures p Cystoscopy, Left Ureteroscopy, Laser Lithotripsy, Stone Extraction, Left Ureteral Stent Exchange(Left) - Diallo Dye MD Ordered Studies 11/25/19 11:15 CT abd pelvis wo con Stat 11/26/19 09:03 FL retrograde includes kub Routine Hospital Course (1) Intractable pain: * Secondary to LEFT 7mm stone adjacent to stent, without evidence of hydronephrosis. Of note, also with 7mm stone within R kidney. Patient with significant history for kidney stones. Follows with Dr. Granados * Urology consult * POD#2 s/p left lithotripsy and stent exchange with Dr. Dye -- will need follow up with Urology as outpatient, to be Thursday with Dr. Granados for stent removal * Continued Flomax 0.4mg, Pyridium 100mg TID. Pain management with Percocet. Heating pad. * Scopolamine for nausea while inpatient * Stone analysis pending (2) Kidney stones: * As above (3) S/P ureteral stent placement: * Initially scheduled to have removed on 12/06, but presented to ED secondary to intractable pain (4) Bilateral nephrolithiasis: * As above (5) Benny's disease: * Noted * TSH 4.510 -- likely reactive, but would repeat as outpatient. Per patient, her PCP checks her TSH monthly (6) PCOS (polycystic ovarian syndrome): * Patient was scheduled to have tubal ligation as an outpatient however she canceled it due to increased pain secondary to the ureteral stent * Stable patient also noted this may be beginning of menstrual period starting, increasing cramping, heat and ice application prn (7) Tobacco use: * Cessation encouraged, patient smokes 2 to 4 cigarettes/day socially, no need for nicotine patch (8) Constipation: * Dulcolax suppository as no BM in 5 days, with resolution on 11/26 * Rec daily stool softener while on pain medications. (9) Antiphospholipid antibody syndrome: * History of multiple miscarriages -- stated she had been worked up by heme/onc in [place] (10) Anemia: * As reported by patient. Pre-op h/h 1236.5. Takes iron-vit C-Y19-zdyav acid supplement as outpatient (11) DVT prophylaxis: * Ambulation * SCDs. Given lovenox SQ 40 on 11/27 as patient w/ hx of superficial DVTs secondary to hx anti-phospholipid antibody Discharged home Total Time Total Time Spent Total Time Spent (In Minutes): 45 Discharge Plan Discharge Items Patient Disposition: Home - Self-Care Reason For Visit: NEPHROLITHIASIS Discharge Diagnosis: Kidney Stones, Intractable Pain/Nausea Condition on Discharge: Fair Goals: You have been hospitalized for an urgent problem which required surgery. During your stay at [facility], we have made an effort to correct the problem that brought you to the hospital while keeping you as comfortable as possible. Surgery and medications were used to bring your condition under control and your discharge instructions will include directions for any medications you should take after leaving the hospital. Please make sure to follow the advice of your surgeon regarding follow up with the surgeon and with your primary care provider. Activity: Resume your previous activity Activity Comment: increase as tolerated Driving/Machine Use: No driving while taking pain medications Non-emergency contact: Primary Care Provider Call non-emergency contact if: you have any medication questions, your symptoms worsen and your pain is not controlled Follow-up/Referrals: Reese Mitchell [Primary Care Provider] - Diet: Regular Addtl Attending Provider Instructions: You have been hospitalized for uncontrolled pain following stent placement. You were taking to the OR for lithotripsy (shock waves) and your stent was exchanged for one of a smaller size. Stone has been sent for anaylsis. After discussion with Dr. Dye, it is determined that you do not need any additional antibiotics. Your stent should remain in until seen by the office. The urology office will call you tomorrow for an appointment, likely on Thursday, to have this removed. If you do not hear from them tomorrow, please give their office a call at [phone]. You are being sent a short prescription of pain medication in case you need it for breakthrough pain. Be aware that this may worsen constipation, and you may want to take some over the miralax or colace as we discussed. You have also been sent a short prescription of flomax to be taken once daily. You received this medication while you were inpatient. Your TSH (thyroid stimulating hormone) was found to be elevated, but this may be due acute stress on your body. Given your history of Hashimotos, it is recommended that you have repeat testing in 4-6 weeks as an outpatient. As we talked about, you may also consider lemonade to help with dissolving stones, given your history, but these are primarily effective against calcium stones. If your stone results as something else, this may be ineffective in assisting. Please follow up with your primary care provider in the next 3-5 days. Please return to the emergency room if you develop fever, worsening shortness of breath, uncontrolled pain, or for any other symptoms that are concerning for you. Pending Studies at Discharge: Yes Studies:: Stone analysis Stand-Alone Forms: My [facility], Work/School Release (Inpt), Smoking Cessation Medications and DC Order Prescriptions: New oxycodone-acetaminophen [Percocet] 5-325 mg Tablet 1 tab PO Q4H PRN (Reason: pain) Qty: 6 RF: 0 tamsulosin 0.4 mg Capsule 0.4 mg PO QAM 3 Days Qty: 3 RF: 0 Continued digestive enzymes Capsule 1 cap PO TID RF: 0 iron-vit C-vit S19-lkgpm acid [id number] tf-ri-vyd-mg Tablet 1 tab PO QAM RF: 0 phenazopyridine [Pyridium] 100 mg Tablet 100 mg PO TID PRN (Reason: UTI Symptoms) RF: 0 cholecalciferol (vitamin D3) [Vitamin D3] 25 mcg (1,000 unit) Tablet 1,000 unit PO QDD RF: 0 Probiotic Blend 2 billion cell-50 mg Capsule 1 cap PO TID RF: 0 Discontinued oxycodone-acetaminophen [Percocet] 5-325 mg tablet 1 tab PO UD PRN (Reason: Pain) RF: 0 Discharge Orders: Discharge Order (Routine); Ordered 11/27/19 Ordered By: Yolanda Hudson Admission Data Admit Date/Time: 11/25/19 14:49 Attending Provider: Yolanda Hudson Admit Provider: Анна Case Primary Care Provider: Reese Mitchell Other Providers: Анна Case ; Radha Granados Other Interventions: Discharge Summary Assessment (RN) Last Done: 11/27/19 15:20 DC Date/Time DO NOT enter until pt leaves facility: 11/27/19 15:49 Coding Level of Care Code D/C Day Management >30 mins Diagnoses Intractable pain R52 Kidney stones N20.0 S/P ureteral stent placement Z96.0 Bilateral nephrolithiasis N20.0 Benny's disease E06.3 PCOS (polycystic ovarian syndrome) E28.2 Tobacco use Z72.0 Constipation K59.00 Antiphospholipid antibody syndrome D68.61 Anemia D64.9 DVT prophylaxis Z29.9
[2019-11-30 16:50] LABS: Component 2 DNR
== END 2019-11-27 15:49 | disposition home or self-care (01) ==
LOC: ED 10:18 → SUATTDRO 14:49 → 2W 14:49 → INTOOBSV 14:49 → 2W 15:56

== ENCOUNTER 2021-03-23 19:54 | Observation (INO) ==
[2021-03-23] MEDS ORDERED: HYDROmorphone INJ 0.5 MG/0.5 ML SYR IV STA (20:05)
[2021-03-23] MEDS ORDERED: SODIUM CHLORIDE 0.9% 1000ML 1,000 ML IV STA (20:05)
[2021-03-23] MEDS ORDERED: PROMETHAZINE 12.5 MG/50.5 ML BAG IV STA (20:05)
--- NOTE | 2021-03-23 20:09 | Emergency Department Note ---
History of Present Illness General Chief complaint: Kidney Stone Stated complaint: KIDNEY STONE Time Seen by Provider: 03/23/21 19:59 Source: patient History of Present Illness Provider complaint: Right flank pain Onset (ago): day(s) Location: back and right Radiation: abdomen Severity: severe Pain Consistency: + intermittent Maximum Pain Intensity: 10 Quality: + sharp Relieved By: + none Exacerbated By: + none Associated symptoms: + nausea/vomiting (Nausea no vomiting); no chest pain, no cough, no fever/chills and no shortness of breath This is a 36-year-old female with a history of kidney stones presenting with right-sided flank pain rating into her right groin. She states the pain has been going on for 5 days intermittently. She saw her doctor who ordered an x- ray which showed a 6 mm stone on the right side. She was given Zofran and Hycodan for pain relief but this has not been helping her. She rates her pain a 10 out of 10 in severity. It is sharp. It is associated with nausea. She d enies any vomiting, fever, chest pain, shortness of breath, diarrhea or cough or cold symptoms. She does states that she has some discomfort with urination and thinks it may be from the stone. She denies any chance of and is currently ending her menstrual cycle. Home Medications Medication Instructions Recorded Confirmed Type Probiotic Blend 1 cap PO QAM 11/25/19 03/23/21 History cholecalciferol (vitamin D3) 1,000 unit PO QDD 11/25/19 03/23/21 History [Vitamin D3] digestive enzymes 1 cap PO TID 11/25/19 03/23/21 History [place] Supplement 1 dose PO QAM 12/21/20 03/23/21 History ferrous sulfate [iron] 325 mg PO QAM 12/21/20 03/23/21 History hydrocodone-acetaminophen [Dawson] 1 tab PO Q6H PRN 12/21/20 03/23/21 History cyanocobalamin (vitamin B-12) 1,000 mcg IM WK 03/23/21 03/23/21 History ondansetron 4 mg PO Q4H PRN 03/23/21 03/23/21 History tamsulosin 0.4 mg PO QDD 03/23/21 03/23/21 History Allergies Allergy/AdvReac Type Severity Reaction Status Date / Time iodine Allergy Unknown SKIN BLEEDS Verified 03/23/21 20:40 nitrofurantoin Allergy Unknown HIVES Verified 03/23/21 20:40 Past Med/Surg History Medical History ADHD Antiphospholipid syndrome Anxiety Bilateral nephrolithiasis Bruxism (teeth grinding) Calculus, ureteral 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; last echo 5 years ago while living in [place], [place] (unable to recall name) History of nephrolithiasis Hx of Benny thyroiditis Iron deficiency anemia Menorrhagia Migraines PCOS (polycystic ovarian syndrome) PONV (postoperative nausea and vomiting) Recurrent nephrolithiasis Tobacco use Vitamin D deficiency Surgical History H/O removal of cyst History of cystoscopy History of lithotripsy History of removal of ureteral stent History of surgery Left SI joint surgery with implant History of ureter stent Hx of appendectomy S/P ureteral stent placement Family History Grandfather (Maternal) Prostate cancer Social History Smoking Status: Current every day smoker Tobacco Type: Cigarettes Cigarettes Per Day: 2-3; Second Hand Exposure: No; Hx Alcohol Use: Yes Alcohol type: wine Hx Substance Use: Yes Substance Use Type Other:: medical marijuana Preferred Language: Faroese Communication Ability: Effective Dining Room Cashier Required: No Beliefs That Will Affect Care: None Current Living Situation: Family Current Living Situation Comment: children Feels Safe at Home: Yes Assistive Devices: None Review of Systems See HPI for pertinent positives & negatives. and A total of 10 systems reviewed and were otherwise negative Physical Exam Vital Signs Vital Signs - 24 hr 03/23/21 19:54 03/23/21 20:15 03/23/21 20:22 Temperature 36.7 C Temperature Source Temporal Artery Scan Pulse Rate 116 H 112 H Pulse Rate from SpO2 Sensor 115 H Respiratory Rate 18 27 H Respiratory Effort / Characteristics Non-Labored Spontaneous Respiratory Depth Normal Respiratory Pattern Regular Blood Pressure 153/88 H 135/87 Blood Pressure Mean 109 103 Blood Pressure Position Sitting Pulse Oximetry 98 97 98 Oxygen Delivery Method Room Air Room Air Room Air Sepsis Recent Fever Within 48 Hours No Sepsis New/Unexplained Change in Mental Status No Sepsis Action Taken by Nursing No Action Required 03/23/21 20:42 03/23/21 22:20 03/23/21 22:30 Temperature Temperature Source Pulse Rate 101 H 74 83 Pulse Rate from SpO2 Sensor 103 H 76 86 Respiratory Rate 18 16 23 Respiratory Effort / Characteristics Respiratory Depth Respiratory Pattern Blood Pressure 123/86 120/82 131/95 Blood Pressure Mean 98 94 107 Blood Pressure Position Pulse Oximetry 98 97 99 Oxygen Delivery Method Room Air Room Air Room Air Sepsis Recent Fever Within 48 Hours Sepsis New/Unexplained Change in Mental Status Sepsis Action Taken by Nursing 03/23/21 22:34 Temperature Temperature Source Pulse Rate 90 Pulse Rate from SpO2 Sensor 89 Respiratory Rate 22 Respiratory Effort / Characteristics Respiratory Depth Respiratory Pattern Blood Pressure 118/87 Blood Pressure Mean 97 Blood Pressure Position Pulse Oximetry 96 Oxygen Delivery Method Room Air Sepsis Recent Fever Within 48 Hours Sepsis New/Unexplained Change in Mental Status Sepsis Action Taken by Nursing Constitutional: Vital signs reviewed. Pacing the room. Eyes: Pupils are equal round reactive to light. Conjunctiva are noninjected. ENT: Pharynx is clear without erythema or exudate. Mucous membranes are moist. Neck supple without meningeal signs. Respiratory: Clear to auscultation bilaterally. Breath sounds are equal bilaterally. Cardiovascular: Regular rate and rhythm. No rubs or gallops. GI: Soft, nondistended with tenderness in the right lower quadrant. No guarding.. Bowel sounds are present. Musculoskeletal: No peripheral edema. No CVA tenderness. Integumentary: No cyanosis. or jaundice. Neurological: The patient is awake and alert. No focal deficits. Psychiatric: Anxious. Course Administered Medications Discontinued Medications Hydromorphone HCl (Hydromorphone Inj 0.5 Mg/0.5 Ml Syr) 0.5 mg IV NOW STA Stop: 03/23/21 20:06 Last Admin: 03/23/21 20:46 Dose: 0.5 mg Documented by: [id number] Sodium Chloride (Nss 1000ml) 1,000 mls @ 999 mls/hr IV .Q1H1M STA Stop: 03/23/21 21:05 Last Infusion: 03/23/21 21:55 Dose: 0 mls/hr Documented by: [id number] Admin: 03/23/21 20:46 Dose: 999 mls/hr Documented by: [id number] Promethazine HCl (Phenergan) 12.5 mg in 50.5 mls @ 202 mls/hr IV NOW STA Stop: 03/23/21 20:19 Last Infusion: 03/23/21 21:10 Dose: 0 mls/hr Documented by: [id number] Admin: 03/23/21 20:46 Dose: 202 mls/hr Documented by: [id number] Ketorolac Tromethamine (Ketorolac 30 Mg/Ml Vial) 10 mg IV NOW STA Stop: 03/23/21 22:33 Last Admin: 03/23/21 22:54 Dose: 10 mg Documented by: [id number] Metoclopramide HCl (Metoclopramide Hcl Inj 5 Mg/Ml 2 Ml Vial) 10 mg IV NOW STA Stop: 03/23/21 22:18 Last Admin: 03/23/21 22:29 Dose: 10 mg Documented by: [id number] Medical Decision Making Differential Diagnosis Renal colic, obstructive uropathy, ureterolithiasis, UTI, appendicitis Medical Records Attestation: I reviewed the patient's medical records. I did perform a limited focused review of portions of the patient's old chart on the electronic medical record. The patient had a KUB x-ray on March 19 which demonstrated a 6 mm calcification in the right pelvis suggestive of a distal ureteral stone. Home Medications Current Medication List: was personally reviewed by me Laboratory Data Attestation: I reviewed the patient's lab results. Result diagrams: 03/23/21 20:15 03/23/21 20:15 Lab Results 03/23/21 03/23/21 03/23/21 Range/Units 20:11 20:11 20:15 WBC (4.8-10.8) K/uL RBC (4.2-5.4) M/uL Hgb (12.0-16.0) g/dL Hct (37-47) % MCV (80-100) fL MCH (25-34) pg MCHC (32-36) g/dL RDW Std Deviation (36.4-46.3) fL RDW Coeff of Marixa (11.5-14.5) % Plt Count (130-400) K/uL MPV (7.4-10.4) fL Immature Gran % (Auto) % Neut % (Auto) % Lymph % (Auto) % [place] % (Auto) % Eos % (Auto) % Baso % (Auto) % Neut # (Auto) (1.4-6.5) K/uL Lymph # (Auto) (1.2-3.4) K/uL [place] # (Auto) (0.11-0.59) K/uL Eos # (Auto) (0-0.5) K/uL Baso # (Auto) (0-0.2) K/uL Immature Gran # (Auto) (0.00-0.02) K/uL Sodium 139 (136-145) mmol/L Potassium 3.4 L (3.5-5.1) mmol/L Chloride 108 H (98-107) mmol/L Carbon Dioxide 25 (21-32) mmol/L Anion Gap 6.0 (3-11) BUN 13 (7-18) mg/dl Creatinine 0.66 (0.6-1.2) mg/dl Est Cr Clr Drug Dosing 117.1 ml/min Est GFR ( Amer) 132.6 ml/min Est GFR (Non-Af Amer) 114.4 ml/min BUN/Creatinine Ratio 20.0 (10-20) Glucose 128 H (70-99) mg/dl Calcium 9.2 (8.5-10.1) mg/dl Total Bilirubin 0.2 (0.2-1) mg/dl AST 14 L (15-37) U/L ALT 16 (12-78) U/L Alkaline Phosphatase 75 (45-117) U/L Total Protein 8.1 (6.4-8.2) gm/dl Albumin 3.9 (3.4-5.0) gm/dl Globulin 4.2 H (2.5-4.0) gm/dl Albumin/Globulin Ratio 0.9 (0.9-2) Lipase 123 (73-393) U/L Urine Color Yellow Urine Appearance Cloudy A (Clear) Urine pH 6.0 (4.5-7.5) Ur Specific [place] 1.013 (1.000-1.030) Urine Protein Negative (Negative) Urine Glucose (UA) Negative (Negative) Urine Ketones Negative (Negative) Urine Blood 3+ H (Negative) Urine Nitrite Negative (Negative) Urine Bilirubin Negative (Negative) Urine Urobilinogen Negative (Negative) Ur Leukocyte Esterase Trace H (Negative) Urine WBC (Auto) 10-30 H (0-5) /hpf Urine RBC (Auto) >30 H (0-4) /hpf U Hyaline Cast (Auto) 1-5 (0-5) /lpf U Epithel Cells (Auto) >30 H (0-5) /lpf Urine Bacteria (Auto) Negative (Negative) POC Ur Test NEG (NEG) COVID-19 Eval Order 03/23/21 03/23/21 Range/Units 20:15 22:32 WBC 14.16 H (4.8-10.8) K/uL RBC 4.08 L (4.2-5.4) M/uL Hgb 11.0 L (12.0-16.0) g/dL Hct 34.3 L (37-47) % MCV 84.1 (80-100) fL MCH 27.0 (25-34) pg MCHC 32.1 (32-36) g/dL RDW Std Deviation 43.4 (36.4-46.3) fL RDW Coeff of Marixa 14.1 (11.5-14.5) % Plt Count 284 (130-400) K/uL MPV 9.9 (7.4-10.4) fL Immature Gran % (Auto) 0.4 % Neut % (Auto) 74.0 % Lymph % (Auto) 17.1 % Atlantic % (Auto) 6.0 % Eos % (Auto) 2.3 % Baso % (Auto) 0.2 % Neut # (Auto) 10.48 H (1.4-6.5) K/uL Lymph # (Auto) 2.42 (1.2-3.4) K/uL Atlantic # (Auto) 0.85 H (0.11-0.59) K/uL Eos # (Auto) 0.33 (0-0.5) K/uL Baso # (Auto) 0.03 (0-0.2) K/uL Immature Gran # (Auto) 0.05 H (0.00-0.02) K/uL Sodium (136-145) mmol/L Potassium (3.5-5.1) mmol/L Chloride (98-107) mmol/L Carbon Dioxide (21-32) mmol/L Anion Gap (3-11) BUN (7-18) mg/dl Creatinine (0.6-1.2) mg/dl Est Cr Clr Drug Dosing ml/min Est GFR ( Amer) ml/min Est GFR (Non-Af Amer) ml/min BUN/Creatinine Ratio (10-20) Glucose (70-99) mg/dl Calcium (8.5-10.1) mg/dl Total Bilirubin (0.2-1) mg/dl AST (15-37) U/L ALT (12-78) U/L Alkaline Phosphatase (45-117) U/L Total Protein (6.4-8.2) gm/dl Albumin (3.4-5.0) gm/dl Globulin (2.5-4.0) gm/dl Albumin/Globulin Ratio (0.9-2) Lipase (73-393) U/L Urine Color Urine Appearance (Clear) Urine pH (4.5-7.5) Ur Specific [place] (1.000-1.030) Urine Protein (Negative) Urine Glucose (UA) (Negative) Urine Ketones (Negative) Urine Blood (Negative) Urine Nitrite (Negative) Urine Bilirubin (Negative) Urine Urobilinogen (Negative) Ur Leukocyte Esterase (Negative) Urine WBC (Auto) (0-5) /hpf Urine RBC (Auto) (0-4) /hpf U Hyaline Cast (Auto) (0-5) /lpf U Epithel Cells (Auto) (0-5) /lpf Urine Bacteria (Auto) (Negative) POC Ur Test (NEG) COVID-19 Eval Order Covid19 at [facility] Imaging Data Radiologist's Impression: Preliminary Findings Only See Final Report For Complete Findings US RENAL: Mild hydronephrosis of the right kidney. No hydronephrosis of the left kidney. Nonobstructing 3 mm left kidney lower pole stone. Bilateral ureteral jets visualized in the urinary bladder. Radiologist: Hammad Courtney M.D. Study ready at 21:49 and initial results transmitted at 22:22 [facility] Narrative I did evaluate the patient as noted above. Patient is presenting with right- sided abdominal pain. She was diagnosed with a kidney stone recently but she is quite tender in the right lower quadrant. I initially was concerned about appendicitis but then she later stated that she already had her appendix taken out. IV access was established. I did treat her with IV morphine and Phenergan. She was also given normal saline IV. I did order a urine analysis. Findings are equivocal. She does have hematuria. I did order and review the patient's blood work as noted in the electronic medical record. Her white count is elevated at 14,000. Hemoglobin is 11. Platelet count is within normal limits. Electrolytes are unremarkable other than a potassium of 3.4 and chloride of 108. I did order an ultrasound of the kidneys. I did review the images myself as well as the radiology report as described above. She has mild right-sided hydronephrosis. I did reassess the patient. She still has pain and significant nausea. She does not feel well enough to go home. I did treat her with Reglan IV as well as Toradol IV. I did discuss the case with the hospitalist and case advocate. Impression & Plan Obstructed, uropathy, Right ureteral stone, Intractable abdominal pain, Intractable nausea and vomiting Discharge Plan Visit Data Chief Complaint: Kidney Stone Stated Complaint: KIDNEY STONE ED Provider: Diallo Rizzo Discharge Problem: Obstructed, uropathy, Right ureteral stone, Intractable abdominal pain, Intractable nausea and vomiting Patient Disposition: Being Evaluated by Hospitalist Forms Stand Alone Forms: My [facility] Prescriptions Prescriptions: No Action digestive enzymes Capsule 1 cap PO TID RF: 0 cholecalciferol (vitamin D3) [Vitamin D3] 25 mcg (1,000 unit) Tablet 1,000 unit PO QDD RF: 0 Probiotic Blend 2 billion cell-50 mg Capsule 1 cap PO QAM RF: 0 hydrocodone-acetaminophen [Dawson] 5-325 mg Tablet 1 tab PO Q6H PRN (Reason: Pain) RF: 0 ferrous sulfate [iron] 325 mg (65 mg iron) Tablet 325 mg PO QAM RF: 0 [place] Supplement 1 dose PO QAM RF: 0 tamsulosin 0.4 mg capsule 0.4 mg PO QDD RF: 0 cyanocobalamin (vitamin B-12) 1,000 mcg/mL solution 1,000 mcg IM WK RF: 0 ondansetron 4 mg tablet,disintegrating 4 mg PO Q4H PRN (Reason: Nausea And Vomiting) RF: 0 Referrals Referrals: Reese Mitchell [Primary Care Provider] -
[2021-03-23 20:43] LABS: Basophils # (auto) 0.03 K/uL (0-0.2); Basophils % (auto) 0.2 %; Eosinophils # (auto) 0.33 K/uL (0-0.5); Eosinophils % (auto) 2.3 %; Hematocrit (blood only) 34.3 % (37-47); Immature Granulocytes # (auto) 0.05 K/uL (0.00-0.02); Immature Granulocytes % (auto) 0.4 %; Lymphocytes # (auto) 2.42 K/uL (1.2-3.4); Lymphocytes % (auto) 17.1 %; Mean Corpuscular Hgb Conc 32.1 g/dL (32-36); Mean Corpuscular Volume 84.1 fL (80-100); Mean Platelet Volume 9.9 fL (7.4-10.4); Monocytes # (auto) 0.85 K/uL (0.11-0.59); Neutrophils # (auto) 10.48 K/uL (1.4-6.5); Platelet Count 284 K/uL (130-400); RDW Coefficient of Variation 14.1 % (11.5-14.5); RDW Standard Deviation 43.4 fL (36.4-46.3); Red Blood Count 4.08 M/uL (4.2-5.4); White Blood Count 14.16 K/uL (4.8-10.8)
[2021-03-23 20:49] LABS: Appearance Urine Cloudy (Clear); Bacteria Urine Automated Negative (Negative); Bilirubin Urine Negative (Negative); Blood Urine 3+ (Negative); Color Urine Yellow; Epithelial Cell Urine Auto >30 /lpf (0-5); Glucose Urine UA Negative (Negative); Ketones Urine Negative (Negative); Leukocyte Esterase Urine Trace (Negative); Nitrite Urine Negative (Negative); Protein Urine Negative (Negative); RBC Urine Automated >30 /hpf (0-4); Specific Gravity Urine 1.013 (1.000-1.030); Urobilinogen Urine Negative (Negative)
[2021-03-23 21:02] LABS: Albumin Globulin Ratio 0.9 (0.9-2); Albumin Level 3.9 gm/dl (3.4-5.0); Bilirubin,Total 0.2 mg/dl (0.2-1); Calcium 9.2 mg/dl (8.5-10.1); Creatinine Clr Calc Pharmacy 117.1 ml/min; Est GFR (African American) 132.6 ml/min; Est GFR (Non-African American) 114.4 ml/min; Globulin 4.2 gm/dl (2.5-4.0); Potassium 3.4 mmol/L (3.5-5.1); Total Protein 8.1 gm/dl (6.4-8.2)
[2021-03-23] MEDS ORDERED: METOCLOPRAMIDE HCL INJ 5 MG/ML 2 ML VIAL IV STA (22:17)
[2021-03-23] MEDS ORDERED: KETOROLAC 30 MG/ML VIAL IV STA (22:32)
--- NOTE | 2021-03-23 23:23 | History & Physical Report ---
Date of Service March 23, 2021 Assessment & Plan (1) Right ureteral stone: Distal 6 mm right ureteral stone/mild right hydronephrosis- N.p.o. after midnight Ceftriaxone 1 g IV daily Follow urine culture and sensitivity Continue tamsulosin NSS + KCl 20 mEq at 100 mils per hour Acetaminophen 650 mg p.o. every 6 hours as needed mild pain or fever Dilaudid 0.5 mg IV every 3 hours as needed moderate pain Dilaudid 1 mg IV every 3 hours as needed severe pain Zofran 4 mg IV every 6 hours as needed Famotidine 20 mg IV every 12 hours Since 6 mm stone initially showing up on KUB x-ray on 03/19, and has not shown up on ultrasound of kidney this evening, will order CT scan abdomen pelvis without contrast for location Consult urology Present on Admission?: Yes (2) Hydronephrosis, right: See above Present on Admission?: Yes History of Present Illness Chief Complaint: The patient presents to the emergency department with complaint of worsening right-sided flank pain radiating toward right groin over the past several days Primary Care Provider: Reese Mitchell The patient is a 36-year-old female with a past medical history including bilateral nephrolithiasis, renal calculi, vitamin D deficiency, antiphospholipid antibody syndrome, and vitamin B12 deficiency. She which showed a distal 6 mm right ureteral calculus. She was seen by urology initially had a KUB x-ray performed on 03/19/2021 which showed a 6 mm distal right ureteral stone. She was seen in follow-up at the urology office on 03/21/2021, with plans to undergo cystoscopy, right ureteral nephroscopy, retrograde pyelogram, laser destruction or extraction of stone, and right stent insertion. Due to worsening pain she presented to the emergency department this evening. Emergency department ordered a renal ultrasound which showed a right mild hydronephrosis and a 3 mm left kidney lower pole stone . Allergies Allergy/AdvReac Type Severity Reaction Status Date / Time iodine Allergy Unknown SKIN BLEEDS Verified 03/23/21 20:40 nitrofurantoin Allergy Unknown HIVES Verified 03/23/21 20:40 Home Medications Medication Instructions Recorded Confirmed Type Probiotic Blend 1 cap PO QAM 11/25/19 03/23/21 History cholecalciferol (vitamin D3) 1,000 unit PO QDD 11/25/19 03/23/21 History [Vitamin D3] digestive enzymes 1 cap PO TID 11/25/19 03/23/21 History Sea Seymour Supplement 1 dose PO QAM 12/21/20 03/23/21 History ferrous sulfate [iron] 325 mg PO QAM 12/21/20 03/23/21 History hydrocodone-acetaminophen [[place]] 1 tab PO Q6H PRN 12/21/20 03/23/21 History cyanocobalamin (vitamin B-12) 1,000 mcg IM WK 03/23/21 03/23/21 History ondansetron 4 mg PO Q4H PRN 03/23/21 03/23/21 History tamsulosin 0.4 mg PO QDD 03/23/21 03/23/21 History Past Med/Surg History Medical History ADHD Antiphospholipid syndrome Anxiety Bilateral nephrolithiasis Bruxism (teeth grinding) Calculus, ureteral Cardiac murmur does not follow with sports marketing specialist; last echo 5 years ago while living in [place], [place] (unable to recall name) History of nephrolithiasis Hx of Benny thyroiditis Iron deficiency anemia Menorrhagia Migraines PCOS (polycystic ovarian syndrome) PONV (postoperative nausea and vomiting) Recurrent nephrolithiasis Tobacco use Vitamin D deficiency Surgical History H/O removal of cyst History of cystoscopy History of lithotripsy History of removal of ureteral stent History of surgery Left SI joint surgery with implant History of ureter stent Hx of appendectomy S/P ureteral stent placement Family History Grandfather (Maternal) Prostate cancer Social History Smoking Status: Current every day smoker Tobacco Type: Cigarettes Cigarettes Per Day: 2-3; Second Hand Exposure: No; Do You Dip or Chew Tobacco: No; Tobacco Cessation Education Requested by Patient: No Hx Alcohol Use: Yes Alcohol type: wine Hx Substance Use: Yes Last Used Substance: Days (ago) Substance Use Type Other:: medical marijuana Preferred Language: Sammarinese Communication Ability: Effective Orthopedic Technician Required: No Beliefs That Will Affect Care: None Current Living Situation: Family Current Living Situation Comment: children Other Information That Helps Us Care for You: No Feels Safe at Home: Yes Safety Concerns: Feels Safe At This Time Assistive Devices: None Review of Systems Review of Systems: The patient denies chest pain, palpitations, shortness of breath, dyspnea on exertion, cough, lower extremity swelling, sore throat, fevers, chills, sweats, diarrhea, constipation, blood in urine or stool, dysuria, urinary frequency or urgency, lightheadedness, dizziness, headache, memory loss, loss of consciousness, rash, abnormal bruising or bleeding, imbalance, focal or generalized weakness, numbness or tingling in arms or legs, generalized arthralgias or myalgias, neck pain, or night sweats. The review of systems is otherwise negative other than for that already noted above, and at least 10 systems have been reviewed. Physical Exam Physical Exam: The patient is awake, alert and oriented 3, well developed and well nourished, normocephalic and atraumatic, lying in bed and in no acute distress. HEENT--PERRL, EOMI, mucous membranes and oropharynx normal. Neck--supple. No JVD. No bruits. Thyroid normal, trachea midline, no adenopathy. Heart--normal S1 and S2. No murmurs, rubs or gallops. Lungs--clear bilaterally, no respiratory distress, no accessory muscle use. Abdomen--normal bowel sounds and soft. No pain elicited post IV Dilaudid Extremities--no cyanosis or clubbing. No edema. Dermatologic--normal skin turgor, normal color, no abnormal lymph nodes, no rash. Neurologic--cranial nerves II through XII grossly intact. Rheumatologic--normal range of motion. Psychiatric--normal affect. Results & Data Results & Data ([facility]) Vital Signs (Past 12 Hours) Vital Signs Temp Pulse Resp BP Pulse Ox 03/23/21 22:34 90 22 118/87 96 03/23/21 22:30 83 23 131/95 99 03/23/21 22:20 74 16 120/82 97 03/23/21 20:42 101 H 18 123/86 98 03/23/21 20:22 112 H 27 H 135/87 98 03/23/21 20:15 97 03/23/21 19:54 98.1 F 116 H 18 153/88 H 98 Laboratory Results Laboratory Results WBC 14.16 K/uL (4.8-10.8) H 03/23/21 20:15 RBC 4.08 M/uL (4.2-5.4) L 03/23/21 20:15 Hgb 11.0 g/dL (12.0-16.0) L 03/23/21 20:15 Hct 34.3 % (37-47) L 03/23/21 20:15 MCV 84.1 fL (80-100) 03/23/21 20:15 MCH 27.0 pg (25-34) 03/23/21 20:15 MCHC 32.1 g/dL (32-36) 03/23/21 20:15 RDW Std Deviation 43.4 fL (36.4-46.3) 03/23/21 20:15 RDW Coeff of Marixa 14.1 % (11.5-14.5) 03/23/21 20:15 Plt Count 284 K/uL (130-400) 03/23/21 20:15 MPV 9.9 fL (7.4-10.4) 03/23/21 20:15 Immature Gran % (Auto) 0.4 % 03/23/21 20:15 Neut % (Auto) 74.0 % 03/23/21 20:15 Lymph % (Auto) 17.1 % 03/23/21 20:15 [place] % (Auto) 6.0 % 03/23/21 20:15 Eos % (Auto) 2.3 % 03/23/21 20:15 Baso % (Auto) 0.2 % 03/23/21 20:15 Neut # (Auto) 10.48 K/uL (1.4-6.5) H 03/23/21 20:15 Lymph # (Auto) 2.42 K/uL (1.2-3.4) 03/23/21 20:15 [place] # (Auto) 0.85 K/uL (0.11-0.59) H 03/23/21 20:15 Eos # (Auto) 0.33 K/uL (0-0.5) 03/23/21 20:15 Baso # (Auto) 0.03 K/uL (0-0.2) 03/23/21 20:15 Immature Gran # (Auto) 0.05 K/uL (0.00-0.02) H 03/23/21 20:15 Sodium 139 mmol/L (136-145) 03/23/21 20:15 Potassium 3.4 mmol/L (3.5-5.1) L 03/23/21 20:15 Chloride 108 mmol/L (98-107) H 03/23/21 20:15 Carbon Dioxide 25 mmol/L (21-32) 03/23/21 20:15 Anion Gap 6.0 (3-11) 03/23/21 20:15 BUN 13 mg/dl (7-18) 03/23/21 20:15 Creatinine 0.66 mg/dl (0.6-1.2) 03/23/21 20:15 Est Cr Clr Drug Dosing 117.1 ml/min 03/23/21 20:15 Est GFR ( Amer) 132.6 ml/min 03/23/21 20:15 Est GFR (Non-Af Amer) 114.4 ml/min 03/23/21 20:15 BUN/Creatinine Ratio 20.0 (10-20) 03/23/21 20:15 Glucose 128 mg/dl (70-99) H 03/23/21 20:15 Calcium 9.2 mg/dl (8.5-10.1) 03/23/21 20:15 Total Bilirubin 0.2 mg/dl (0.2-1) 03/23/21 20:15 AST 14 U/L (15-37) L 03/23/21 20:15 ALT 16 U/L (12-78) 03/23/21 20:15 Alkaline Phosphatase 75 U/L (45-117) 03/23/21 20:15 Total Protein 8.1 gm/dl (6.4-8.2) 03/23/21 20:15 Albumin 3.9 gm/dl (3.4-5.0) 03/23/21 20:15 Globulin 4.2 gm/dl (2.5-4.0) H 03/23/21 20:15 Albumin/Globulin Ratio 0.9 (0.9-2) 03/23/21 20:15 Lipase 123 U/L (73-393) 03/23/21 20:15 Urine Color Yellow 03/23/21 20:11 Urine Appearance Cloudy (Clear) A 03/23/21 20:11 Urine pH 6.0 (4.5-7.5) 03/23/21 20:11 Ur Specific [place] 1.013 (1.000-1.030) 03/23/21 20:11 Urine Protein Negative (Negative) 03/23/21 20:11 Urine Glucose (UA) Negative (Negative) 03/23/21 20:11 Urine Ketones Negative (Negative) 03/23/21 20:11 Urine Blood 3+ (Negative) H 03/23/21 20:11 Urine Nitrite Negative (Negative) 03/23/21 20:11 Urine Bilirubin Negative (Negative) 03/23/21 20:11 Urine Urobilinogen Negative (Negative) 03/23/21 20:11 Ur Leukocyte Esterase Trace (Negative) H 03/23/21 20:11 Urine WBC (Auto) 10-30 /hpf (0-5) H 03/23/21 20:11 Urine RBC (Auto) >30 /hpf (0-4) H 03/23/21 20:11 U Hyaline Cast (Auto) 1-5 /lpf (0-5) 03/23/21 20:11 U Epithel Cells (Auto) >30 /lpf (0-5) H 03/23/21 20:11 Urine Bacteria (Auto) Negative (Negative) 03/23/21 20:11 POC Ur Test NEG (NEG) 03/23/21 20:11 COVID-19 Eval Order Covid19 at [facility] 03/23/21 22:32 SARS-CoV-2 (PCR) NEGATIVE (Negative) 03/23/21 22:32 Diagnostic Findings [facility] Patient: DAKSHA SHARMA (Female) : 87 Status: ER Date: 03/23/21 21:47 Room #: History: right sided pain eval for hydro Slices: 26 Priors: Tech: Efren Max @ [phone] Exams: US RENAL Contrast: Accession Numbers: [id number] Preliminary Findings Only See Final Report For Complete Findings US RENAL: Mild hydronephrosis of the right kidney. No hydronephrosis of the left kidney. Nonobstructing 3 mm left kidney lower pole stone. Bilateral ureteral jets visualized in the urinary bladder. Radiologist: Hammad Courtney M.D. Study ready at 21:49 and initial results transmitted at 22:22 *This report constitutes a preliminary interpretation only. Non-acute findings felt to be unrelated to the clinical presentation may not be discussed in this report. The study will be interpreted and a final report will be generated by the local Radiologist the following shift. To reach the hospital radiology department call [phone]. If a discrepancy is found between the preliminary and final interpretations of this study, please notify us via our Client Portal at [email or web address].You can also fax this report with a description of the discrepancy, or include the final report, to our daytime fax number [phone].If faxing, please indicate the severity of discrepancy using one of the following categories: [ ] 1 - Agree/Informational [ ] 2 - Unlikely to Affect Management [ ] 3 - Possible Eventual Change of Management [ ] 4 - Probable Immediate Change of Management For all other patient related information, please fax us at [phone]. [id number] Code Status & VTE Plan Code Status Full code VTE Prophylaxis Plan VTE Prophylaxis will be ordered: Yes PG Care Time/CCT Total # of Minutes Spent Total Time Spent with Patient: Total time spent is greater than 50% in coordination of care (as documented) at patient's floor/unit and/or counseling patient: Coding Level of Care Code 63376 Initial Inpt Care Lvl 2 Diagnoses Right ureteral stone N20.1 Hydronephrosis, right N13.30
[2021-03-24] MEDS ORDERED: HYDROmorphone INJ 1 MG/ML SYRINGE IV PRN (01:00)
[2021-03-24] MEDS ORDERED: ONDANSETRON INJ 2 MG/ML 2 ML VIAL IV PRN ×2 (01:00→08:19)
[2021-03-24] MEDS ORDERED: HYDROmorphone INJ 0.5 MG/0.5 ML SYR IV PRN (01:00)
[2021-03-24] MEDS ORDERED: HYDROCODONE/ACETAMOPHEN 5/325MG TAB PO PRN (01:00)
[2021-03-24] MEDS ORDERED: ACETAMINOPHEN 325 MG TAB PO PRN (01:00)
[2021-03-24] MEDS ORDERED: cefTRIAXone SODIUM 2,000 MG in DEXTROSE 5% 50 ML IV SCH (01:00)
[2021-03-24] MEDS ORDERED: NSS + 20MEQ KCL 20 MEQ/1,000 ML BAG IV SCH (01:30)
--- NOTE | 2021-03-24 07:23 | CT Scan Report ---
CT OF THE ABDOMEN AND PELVIS WITHOUT CONTRAST CLINICAL HISTORY: Right ureteral calculus with hydronephrosis. COMPARISON STUDY: CT of the abdomen and pelvis September 08, 2020. KUB March 19, 2021. Renal ultrasound March 23, 2021. TECHNIQUE: Axial images of the abdomen and pelvis were obtained without IV contrast. Images were revi ewed in the axial, sagittal, and coronal planes. Automated exposure control was utilized for the lara dy. A dose lowering technique was utilized adhering to the principles of ALARA. FINDINGS: An 8 mm x 5 mm distal right ureteral calculus results in mild right hydroureteronephrosis. There has been mild distal migration of this calculus since KUB of March 19, 2021. There is mild right perinephric and periureteral infiltration. Multiple small bilateral renal calculi are also noted. The se measure up to 3 mm. There are no left ureteral calculi. There is no left hydronephrosis. Evaluatio n of the remainder of the abdomen and pelvis is suboptimal on this unenhanced examination. The liver, spleen, adrenal glands are unremarkable. Is no evidence for a bowel obstruction. The appendix is yoandy gically absent. No acute fracture or suspicious lesion is identified within the visualized skeletal s tructures. IMPRESSION: 1. 8 mm x 5 mm distal right ureteral calculus which results in mild right hydroureteronephrosis. Mild distal migration of this calculus since KUB of March 19, 2021. 2. Bilateral nephrolithiasis. ACT 112: Negative or not required by law. Electronically signed by: Gennaro Esteban M.D. 03/24/2021 7:21 AM
--- NOTE | 2021-03-24 07:25 | Anesthesiology Consultation ---
Date of Service March 24, 2021 Assessment & Plan (1) Encounter for pre-operative examination: Chart Review Chart Review: Acceptable Risk for Surgery History Surgery Operation Date: 03/24/21 09:00 Proposed Procedures p Cystoscopy Retrograde - Diallo Dye MD s Laser Lithotripsy Holmium - Diallo Dye MD Height/Weight Height: 5 ft 2 in Weight: 80 kg Allergies Allergy/AdvReac Type Severity Reaction Status Date / Time iodine Allergy Unknown SKIN BLEEDS Verified 03/23/21 20:40 nitrofurantoin Allergy Unknown HIVES Verified 03/23/21 20:40 Medications Home Medications Medication Instructions Recorded Confirmed Last Taken Probiotic Blend 1 cap PO QAM 11/25/19 03/23/21 03/23/21 cholecalciferol (vitamin D3) 1,000 unit PO QDD 11/25/19 03/23/21 03/23/21 [Vitamin D3] digestive enzymes 1 cap PO TID 11/25/19 03/23/21 03/23/21 Sea Seymour Supplement 1 dose PO QAM 12/21/20 03/23/21 03/23/21 ferrous sulfate [iron] 325 mg PO QAM 12/21/20 03/23/21 03/23/21 hydrocodone-acetaminophen [[place]] 1 tab PO Q6H PRN 12/21/20 03/23/21 03/23/21 cyanocobalamin (vitamin B-12) 1,000 mcg IM WK 03/23/21 03/23/21 03/19/21 ondansetron 4 mg PO Q4H PRN 03/23/21 03/23/21 03/23/21 18:00 tamsulosin 0.4 mg PO QDD 03/23/21 03/23/21 03/23/21 Active Medications Generic Name Dose Route Start Last Admin Trade Name Freq PRN Reason Stop Dose Admin Hydromorphone HCl 0.5 mg 03/24/21 01:00 03/24/21 01:27 Hydromorphone Inj 0.5 Mg/0.5 Ml Syr IV 04/07/21 00:59 0.5 mg Q3H PRN Administration Moderate Pain Ceftriaxone Sodium 2,000 mg/ 70 mls @ 100 mls/hr 03/24/21 01:00 03/24/21 02:16 Dextrose IV 04/03/21 00:59 Infused Q24H IRENE Infusion Protocol Potassium Chloride/Sodium Chloride 20 meq in 1,000 mls @ 100 mls/hr 03/24/21 01:30 03/24/21 05:56 Normal Saline W/20 Meq Kcl IV 04/23/21 01:29 100 mls/hr .Q10H IRENE Infusion Ondansetron HCl 4 mg 03/24/21 01:00 03/24/21 01:25 Ondansetron Inj 2 Mg/Ml 2 Ml Vial IV 04/23/21 00:59 4 mg Q6H PRN Administration Nausea Past Medical History Medical History ADHD Antiphospholipid syndrome Anxiety Bilateral nephrolithiasis Bruxism (teeth grinding) Calculus, ureteral Cardiac murmur does not follow with sld inclusion teacher; last echo 5 years ago while living in [place], [place] (unable to recall name) History of nephrolithiasis Hx of Benny thyroiditis Iron deficiency anemia Menorrhagia Migraines PCOS (polycystic ovarian syndrome) PONV (postoperative nausea and vomiting) Recurrent nephrolithiasis Tobacco use Vitamin D deficiency Past Family History Family History Grandfather (Maternal) Prostate cancer Past Surgical History Surgical History H/O removal of cyst History of cystoscopy History of lithotripsy History of removal of ureteral stent History of surgery Left SI joint surgery with implant History of ureter stent Hx of appendectomy S/P ureteral stent placement Social History Smoking Status: Current every day smoker tobacco type: cigarettes Smoking cigarettes per day: 2-3 Do You Dip or Chew Tobacco: No Hx Alcohol Use: Yes Alcohol type: wine alcohol intake frequency: a few times a week Hx Substance Use: Yes substance use type: marijuana Substance Use Type Other:: medical marijuana Last Used Substance: Days (ago) Physical Exam Vital Signs Last Vital Signs Temp 36.7 C 03/24/21 07:21 Pulse 75 03/24/21 07:21 Resp 16 03/24/21 07:21 BP 116/74 03/24/21 07:21 Pulse Ox 100 03/24/21 07:21 Testing Laboratory Results 03/23/21 20:15 03/23/21 20:15 Urine Color Yellow 03/23/21 20:11 Urine Appearance Cloudy (Clear) A 03/23/21 20:11 Urine pH 6.0 (4.5-7.5) 03/23/21 20:11 Ur Specific [place] 1.013 (1.000-1.030) 03/23/21 20:11 Urine Protein Negative (Negative) 03/23/21 20:11 Urine Glucose (UA) Negative (Negative) 03/23/21 20:11 Urine Ketones Negative (Negative) 03/23/21 20:11 Urine Nitrite Negative (Negative) 03/23/21 20:11 Ur Leukocyte Esterase Trace (Negative) H 03/23/21 20:11 Urine WBC (Auto) 10-30 /hpf (0-5) H 03/23/21 20:11 Urine RBC (Auto) >30 /hpf (0-4) H 03/23/21 20:11 U Hyaline Cast (Auto) 1-5 /lpf (0-5) 03/23/21 20:11 U Epithel Cells (Auto) >30 /lpf (0-5) H 03/23/21 20:11 Urine Bacteria (Auto) Negative (Negative) 03/23/21 20:11 03/23/21 20:11 POC Ur Test NEG
--- NOTE | 2021-03-24 07:26 | Urology Consultation ---
Date of Consultation March 24, 2021 Assessment & Plan (1) Right ureteral stone: Large distal right ureteral calculus with persistent pain. WBC slightly elevated. Discussed options including urgent Cysto and Uscope w/ laser vs trial of passage. Due to pain, pt would like to proceed with surgical intervention. Will make arrangements for today. (2) Hydronephrosis, right: History of Present Illness Attending Physician: Gustavo Butts MD 36 y/o F with hx of stones. Presents to the ER with right sided flank pain. She had a KUB done by Urology on 03/19. That showed a possible 6mm right sided distal ureteral calculus. She was then seen in the office on 03/21. She was scheduled for cysto, right uscope, laser litho for this upcoming Thursday. Due to worsening pain she presented to the emergency department this evening. Emergency department ordered a renal ultrasound which showed a right mild hydronephrosis and a 3 mm left kidney lower pole stone. She continues to have pain even overnight. Urge. Freq. Nausea. A CT scan was performed this morning. No report yet, but there does appear to be a distal calculus that wasn't there on her last scan in 08/2020.. Allergies Allergy/AdvReac Type Severity Reaction Status Date / Time iodine Allergy Unknown SKIN BLEEDS Verified 03/23/21 20:40 nitrofurantoin Allergy Unknown HIVES Verified 03/23/21 20:40 Home Medications Medication Instructions Recorded Confirmed Type Probiotic Blend 1 cap PO QAM 11/25/19 03/23/21 History cholecalciferol (vitamin D3) 1,000 unit PO QDD 11/25/19 03/23/21 History [Vitamin D3] digestive enzymes 1 cap PO TID 11/25/19 03/23/21 History Sea Seymour Supplement 1 dose PO QAM 12/21/20 03/23/21 History ferrous sulfate [iron] 325 mg PO QAM 12/21/20 03/23/21 History hydrocodone-acetaminophen [[place]] 1 tab PO Q6H PRN 12/21/20 03/23/21 History cyanocobalamin (vitamin B-12) 1,000 mcg IM WK 03/23/21 03/23/21 History ondansetron 4 mg PO Q4H PRN 03/23/21 03/23/21 History tamsulosin 0.4 mg PO QDD 03/23/21 03/23/21 History Patient History Medical History ADHD Antiphospholipid syndrome Anxiety Bilateral nephrolithiasis Bruxism (teeth grinding) Calculus, ureteral Cardiac murmur does not follow with clinical fellow; last echo 5 years ago while living in [place], [place] (unable to recall name) History of nephrolithiasis Hx of Benny thyroiditis Iron deficiency anemia Menorrhagia Migraines PCOS (polycystic ovarian syndrome) PONV (postoperative nausea and vomiting) Recurrent nephrolithiasis Tobacco use Vitamin D deficiency Surgical History H/O removal of cyst History of cystoscopy History of lithotripsy History of removal of ureteral stent History of surgery Left SI joint surgery with implant History of ureter stent Hx of appendectomy S/P ureteral stent placement Family History Grandfather (Maternal) Prostate cancer Social History Smoking Status: Current every day smoker Tobacco Type: Cigarettes Cigarettes Per Day: 2-3; Second Hand Exposure: No; Do You Dip or Chew Tobacco: No; Tobacco Cessation Education Requested by Patient: No Hx Alcohol Use: Yes Alcohol type: wine Hx Substance Use: Yes Last Used Substance: Days (ago) Substance Use Type Other:: medical marijuana Preferred Language: Mongolian Communication Ability: Effective Chef & Owner Required: No Beliefs That Will Affect Care: None Current Living Situation: Family Current Living Situation Comment: children Other Information That Helps Us Care for You: No Feels Safe at Home: Yes Safety Concerns: Feels Safe At This Time Assistive Devices: None Review of Systems Review of Systems: All systems reviewed & are unremarkable except as noted in HPI & below Physical Exam Constitutional: WD/WN, vitals as above ENMT: external ear and nose normal, oropharynx normal Neck: trachea midline, no thyromegaly Respiratory: normal respiratory effort, lungs clear to auscultation Cardiovascular: RRR, no murmur, no edema Gastrointestinal (Abdomen): normal bowel sounds, soft, nontender, no hepatosplenomegaly Skin: no rashes, warm and dry Neurologic: patellar DTR's 2+ bilat, sensation intact Genitourinary: no vaginal lesions, no adnexal mass Lymphatic: no cervical or axillary lymphadenopathy Results & Data ([facility]) Vital Signs (Past 12 Hours) Vital Signs Temp Pulse Pulse Resp BP BP Pulse Ox 03/24/21 07:21 36.7 C 75 16 116/74 100 03/24/21 01:06 36.7 C 90 18 117/79 99 03/24/21 00:30 64 14 105/62 98 03/24/21 00:00 63 18 106/67 98 03/23/21 23:30 67 14 112/67 98 03/23/21 23:00 71 13 111/75 97 03/23/21 22:34 90 22 118/87 96 03/23/21 22:30 83 23 131/95 99 03/23/21 22:20 74 16 120/82 97 03/23/21 20:42 101 H 18 123/86 98 03/23/21 20:22 112 H 27 H 135/87 98 03/23/21 20:15 97 03/23/21 19:54 36.7 C 116 H 18 153/88 H 98 PG Care Time/CCT Total # of Minutes Spent Total Time Spent with Patient: Total time spent is greater than 50% in coordination of care (as documented) at patient's floor/unit and/or counseling patient: Coding Level of Care Code 51673 Inpt Consult Level 3 Diagnoses Right ureteral stone N20.1 Hydronephrosis, right N13.30
--- NOTE | 2021-03-24 07:49 | Ultrasound Report ---
RENAL ULTRASOUND CLINICAL HISTORY: Right flank pain. Evaluate for hydronephrosis. COMPARISON STUDY: CT of the abdomen and pelvis September 08, 2020. TECHNIQUE: Sonography of the kidneys and the urinary bladder was performed. FINDINGS: Right kidney measures 12.4 cm in maximal dimension and the left measures 12 cm. There is mi ld right hydronephrosis. There is no left hydronephrosis. Several left renal calculi measure up to 3 mm. No ureteral calculi are identified although these may be occult by sonography. Both ureteral jets were identified. IMPRESSION: 1. Mild right hydronephrosis. No ureteral calculi identified although these may be occult by sonograp hy. 2. Left-sided nephrolithiasis. ACT 112: Negative or not required by law. Electronically signed by: Gennaro Esteban M.D. 03/24/2021 7:48 AM
[2021-03-24] MEDS ORDERED: ATROPINE SULFATE 0.1 MG/ML 10ML SYR IV PRN (08:19)
[2021-03-24] MEDS ORDERED: SCOPOLAMINE 1 MG TDSY TD ONE (08:19)
[2021-03-24] MEDS ORDERED: PROMETHAZINE HCL 12.5 MG in SODIUM CHLORIDE 0.9% 50 ML IV PRN (08:19)
[2021-03-24] MEDS ORDERED: fentaNYL citrate 100 MCG/2 ML VIAL IV PRN (08:19)
[2021-03-24] MEDS ORDERED: MIDAZOLAM HCL 1 MG/ML 2ML VIAL ONE (08:20)
[2021-03-24] MEDS ORDERED: LIDOCAINE 2% 2 ML VIAL/AMP(20MG/ML) INFIL ONE (08:20)
[2021-03-24] MEDS ORDERED: DEXAMETHASONE SOD INJ 4 MG/ML VIAL ONE (08:20)
[2021-03-24] MEDS ORDERED: ONDANSETRON INJ 2 MG/ML 2 ML VIAL ONE (08:20)
[2021-03-24] MEDS ORDERED: PROPOFOL IV EMULSION 10 MG/ML 20 ML VIAL IV ONE (08:20)
[2021-03-24] MEDS ORDERED: fentaNYL citrate 100 MCG/2 ML VIAL ONE (08:20)
--- NOTE | 2021-03-24 08:34 | History & Physical Report ---
Date of Service March 24, 2021 Assessment & Plan (1) Hydronephrosis, right: Pt stable for surgery. Cysto, right uscope, laser litho, stent for a 7mm right distal stone. (2) Obstructed, uropathy: Admission and Anticipated Discharge Date Admission Date: March 23, 2021 History of Present Illness Primary Care Provider: Reese Mitchell Pt for surgery today. See past consult note for history. No changes. Allergies Allergy/AdvReac Type Severity Reaction Status Date / Time iodine Allergy Unknown SKIN BLEEDS Verified 03/23/21 20:40 nitrofurantoin Allergy Unknown HIVES Verified 03/23/21 20:40 Home Medications Medication Instructions Recorded Confirmed Type Probiotic Blend 1 cap PO QAM 11/25/19 03/23/21 History cholecalciferol (vitamin D3) 1,000 unit PO QDD 11/25/19 03/23/21 History [Vitamin D3] digestive enzymes 1 cap PO TID 11/25/19 03/23/21 History [place] Supplement 1 dose PO QAM 12/21/20 03/23/21 History ferrous sulfate [iron] 325 mg PO QAM 12/21/20 03/23/21 History hydrocodone-acetaminophen [[place]] 1 tab PO Q6H PRN 12/21/20 03/23/21 History cyanocobalamin (vitamin B-12) 1,000 mcg IM WK 03/23/21 03/23/21 History ondansetron 4 mg PO Q4H PRN 03/23/21 03/23/21 History tamsulosin 0.4 mg PO QDD 03/23/21 03/23/21 History Past Med/Surg History Medical History ADHD Antiphospholipid syndrome Anxiety Bilateral nephrolithiasis Bruxism (teeth grinding) Calculus, ureteral Cardiac murmur does not follow with financial recording clerk; last echo 5 years ago while living in [place], [place] (unable to recall name) History of nephrolithiasis Hx of Benny thyroiditis Iron deficiency anemia Menorrhagia Migraines PCOS (polycystic ovarian syndrome) PONV (postoperative nausea and vomiting) Recurrent nephrolithiasis Tobacco use Vitamin D deficiency Surgical History H/O removal of cyst History of cystoscopy History of lithotripsy History of removal of ureteral stent History of surgery Left SI joint surgery with implant History of ureter stent Hx of appendectomy S/P ureteral stent placement Family History Grandfather (Maternal) Prostate cancer Social History Smoking Status: Current every day smoker Tobacco Type: Cigarettes Cigarettes Per Day: 2-3; Second Hand Exposure: No; Do You Dip or Chew Tobacco: No; Tobacco Cessation Education Requested by Patient: No Hx Alcohol Use: Yes Alcohol type: wine Hx Substance Use: Yes Last Used Substance: Days (ago) Substance Use Type Other:: medical marijuana Preferred Language: Slovenian Communication Ability: Effective Client Experience Administrator Required: No Beliefs That Will Affect Care: None Current Living Situation: Family Current Living Situation Comment: children Other Information That Helps Us Care for You: No Feels Safe at Home: Yes Safety Concerns: Feels Safe At This Time Assistive Devices: None Review of Systems All systems reviewed & are unremarkable except as noted in HPI & below Physical Exam Constitutional: WD/WN, vitals as above Respiratory: normal respiratory effort, lungs clear to auscultation Cardiovascular: RRR, no murmur, no edema Results & Data ([facility]) Vital Signs (Past 12 Hours) Vital Signs Temp Pulse Pulse Resp BP BP Pulse Ox 03/24/21 07:21 36.7 C 75 16 116/74 100 03/24/21 01:06 36.7 C 90 18 117/79 99 03/24/21 00:30 64 14 105/62 98 03/24/21 00:00 63 18 106/67 98 03/23/21 23:30 67 14 112/67 98 03/23/21 23:00 71 13 111/75 97 03/23/21 22:34 90 22 118/87 96 03/23/21 22:30 83 23 131/95 99 03/23/21 22:20 74 16 120/82 97 03/23/21 20:42 101 H 18 123/86 98 Code Status & VTE Plan VTE Prophylaxis Plan VTE Prophylaxis will be ordered: Yes
[2021-03-24] MEDS ORDERED: DIATRIZOATE MEGLUMINE 30% 100ML VIAL INSTIL ONE (08:55)
[2021-03-24] MEDS ORDERED: NON-FORMULARY MEDICATION (Digestive Enzymes Capsule) PO SCH (09:00)
[2021-03-24] MEDS ORDERED: ADVANCED PROBIOTIC 1250 MG CAPSULE PO SCH (09:00)
[2021-03-24] MEDS ORDERED: FERROUS SULFATE 325 MG TAB PO SCH (09:00)
--- NOTE | 2021-03-24 09:13 | Post Operative Brief Note ---
Immediate Post Op Note v1 Date of Surgery March 24, 2021 Pre & Post Diagnosis Operation Date: 03/24/21 09:00 Pre-Op Diagnosis: Hydronephrosis, right Post-Op Diagnosis: Hydronephrosis, right I identified the patient and participated in the time-out.: Yes Procedure Operation Date: 03/24/21 09:00 Actual Procedures p Cystoscopy, Retrograde Pyelogram, Right Stent Placement, Ureteral Dilation,Basket Stone Extraction(Right) - Diallo Dye MD s Laser Lithotripsy Holmium(Right) - Diallo Dye MD Surgeon Diallo Dye MD Asbestos Handler none Estimated Blood Loss 0 Findings Consistent with Post-Op Diagnosis
--- NOTE | 2021-03-24 09:44 | Operative Report (OR) ---
DATE OF OPERATION: 03/24/2021 SURGEON: Diallo Dye MD. POLICE SERGEANT PRECINCT: None. PREOPERATIVE DIAGNOSIS: Right ureteral calculus. POSTOPERATIVE DIAGNOSIS: Right ureteral calculus. PROCEDURE: Cystoscopy, right retrograde pyelogram, right ureteroscopy, right ureteral dilation, laser lithotripsy of stone, basket extraction of stone, right ureteral stent placement. ANESTHESIA: General endotracheal. COMPLICATIONS: None. SPECIMENS: Ureteral calculus. DRAINS: A 6-[place] x 26 cm ureteral stent. ESTIMATED BLOOD LOSS: Minimal. CONDITION: Stable. INDICATIONS: The patient has a history of kidney stones, recently presented with right sided flank pain. X-ray and CT scan confirmed a 7 mm distal ureteral calculus, now presents for surgical intervention. DESCRIPTION OF PROCEDURE: The patient was brought to the operative suite and positively identified, placed on the table in supine position. After the induction of general anesthesia, placed in dorsal lithotomy position. The genitalia prepped and draped in a sterile fashion. A timeout was performed. A rigid cystoscope was passed through the urethra into the bladder. The urethra was normal. The bladder was unremarkable. I turned my attention toward the right ureteral orifice. This was intubated with an open-ended catheter and retrograde pyelogram was performed showing a filling defect in the distal ureter consistent with the stone seen on the previous CT scan. A sensor wire was passed up to the level of the renal pelvis and a rigid ureteroscope was attempted to pass up the distal ureter; however, this was too snug. This was subsequently dilated using a tapered ureteral dilators. The scope was then fit and I encountered the stone in the distal ureter. Using a 365 micron holmium laser fiber, the stone was fragmented into multiple smaller pieces, which were subsequently extracted using a Christopher basket. I do not see any sizable stone fragments within the ureter when I was completed. Final retrograde pyelogram was unremarkable. A 6-[place] x 26 cm ureteral stent was then placed with a good curl seen proximally and distally. The strings were cut short and the bladder was drained. The patient tolerated the procedure well. Sponge and needle counts were correct. Taken to the PACU in stable condition. She will follow up in approximately 1 week for stent removal. I attest to the content of the Intraoperative Record and any orders documented therein. Any exception s are noted below.
--- NOTE | 2021-03-24 09:47 | Anesthesiology Progress Note ---
Date of Service March 24, 2021 Anesthesia Post Procedure Vital Signs Vital Signs: Temp Pulse Pulse Pulse Resp BP BP 03/24/21 09:40 36.2 C L 71 16 99/83 L 03/24/21 09:30 36.2 C L 80 14 118/81 03/24/21 09:23 36.0 C L 96 H 20 116/91 03/24/21 07:21 36.7 C 75 16 03/24/21 01:06 36.7 C 90 18 03/24/21 00:30 64 14 105/62 03/24/21 00:00 63 18 106/67 03/23/21 23:30 67 14 112/67 03/23/21 23:00 71 13 111/75 03/23/21 22:34 90 22 118/87 03/23/21 22:30 83 23 131/95 03/23/21 22:20 74 16 120/82 03/23/21 20:42 101 H 18 123/86 03/23/21 20:22 112 H 27 H 135/87 03/23/21 20:15 03/23/21 19:54 36.7 C 116 H 18 153/88 H BP Pulse Ox 03/24/21 09:40 97 03/24/21 09:30 100 03/24/21 09:23 100 03/24/21 07:21 116/74 100 03/24/21 01:06 117/79 99 03/24/21 00:30 98 03/24/21 00:00 98 03/23/21 23:30 98 03/23/21 23:00 97 03/23/21 22:34 96 03/23/21 22:30 99 03/23/21 22:20 97 03/23/21 20:42 98 03/23/21 20:22 98 03/23/21 20:15 97 03/23/21 19:54 98 Pain Intensity Right Flank: Pain Intensity: 6 Transfer of Care Handoff Completed per policy Notes Mental Status: alert / awake / arousable Patient Amnestic to Procedure: Yes Nausea / Vomiting: adequately controlled Pain: adequately controlled Airway Patency, RR, SpO2: stable & adequate BP & HR: stable & adequate Hydration State: stable & adequate Anesthetic Complications: no major complications apparent
--- NOTE | 2021-03-24 09:55 | Fluoroscopy Report ---
INTRAOPERATIVE RADIOGRAPHS CLINICAL HISTORY: Right ureteral stent placement. Fluoroscopy time: 10 seconds. FINDINGS: 2 spot fluoroscopic views of the right abdomen are correlated with abdominal CT dated 2020. The images show the proximal and distal ends of a right ureteral stent in appropriate position. No calcifications are identified along the course of the stent. Surgical clips are noted in the righ t hemipelvis. IMPRESSION: Intraoperative images from a right ureteral stent placement as above. Electronically signed by: Mark Carmen M.D. 03/24/2021 9:54 AM
--- NOTE | 2021-03-24 09:58 | Urology Progress Note ---
Date of Service March 24, 2021 Assessment & Plan (1) Hydronephrosis, right: Surgery was successful in removing the stones. OK for discharge home today if stable later in the afternoon. Pt will need to follow up in clinic in 1 week for stent removal. (2) Right ureteral stone: Admission and Anticipated Discharge Date Admission Date: March 23, 2021 Subjective Pt underwent cysto with right uscope and laser litho today. Tolerated well. No complications. Review of Systems Review of Systems: All systems reviewed & are unremarkable except as noted in HPI & below Physical Exam Constitutional: WD/WN, vitals as above Neck: trachea midline, no thyromegaly Cardiovascular: RRR, no murmur, no edema Skin: no rashes, warm and dry Results & Data ([facility]) Vital Signs (Past 12 Hours) Vital Signs Temp Pulse Pulse Pulse Resp BP BP 03/24/21 09:50 68 22 117/71 03/24/21 09:40 36.2 C L 71 16 99/83 L 03/24/21 09:30 36.2 C L 80 14 118/81 03/24/21 09:23 36.0 C L 96 H 20 116/91 03/24/21 07:21 36.7 C 75 16 03/24/21 01:06 36.7 C 90 18 03/24/21 00:30 64 14 105/62 03/24/21 00:00 63 18 106/67 03/23/21 23:30 67 14 112/67 03/23/21 23:00 71 13 111/75 03/23/21 22:34 90 22 118/87 03/23/21 22:30 83 23 131/95 03/23/21 22:20 74 16 120/82 BP Pulse Ox 03/24/21 09:50 100 03/24/21 09:40 97 03/24/21 09:30 100 03/24/21 09:23 100 03/24/21 07:21 116/74 100 03/24/21 01:06 117/79 99 03/24/21 00:30 98 03/24/21 00:00 98 03/23/21 23:30 98 03/23/21 23:00 97 03/23/21 22:34 96 03/23/21 22:30 99 03/23/21 22:20 97 PG Care Time/CCT Total # of Minutes Spent Total Time Spent with Patient: Total time spent is greater than 50% in coordination of care (as documented) at patient's floor/unit and/or counseling patient: 20 min Coding Level of Care Code 27789 Subseq Hosp Care Lvl 2 Diagnoses Hydronephrosis, right N13.30 Right ureteral stone N20.1
[2021-03-24] MEDS ORDERED: TAMSULOSIN HCL 0.4 MG CAP PO SCH (16:30)
[2021-03-24] MEDS ORDERED: CHOLECALCIFEROL 1,000 UNITS 25 MCG TAB PO SCH (16:30)
[2021-03-26] MEDS ORDERED: CYANOCOBALAMIN 1000 MCG/ML VIAL IM SCH (09:00)
[2021-03-29 21:46] LABS: Component 2 DNR; Source URETER STONE
--- NOTE | 2021-03-30 16:59 | Discharge Summary ---
Date of Service March 24, 2021 Admission HPI Per Admitting Provider The patient is a 36-year-old female with a past medical history including bilateral nephrolithiasis, renal calculi, vitamin D deficiency, antiphospholipid antibody syndrome, and vitamin B12 deficiency. She which showed a distal 6 mm right ureteral calculus. She was seen by urology initially had a KUB x-ray performed on 03/19/2021 which showed a 6 mm distal right ureteral stone. She was seen in follow-up at the urology office on 03/21/2021, with plans to undergo cystoscopy, right ureteral nephroscopy, retrograde pyelogram, laser destruction or extraction of stone, and right stent insertion. Due to worsening pain she presented to the emergency department this evening. Emergency department ordered a renal ultrasound which showed a right mild hydronephrosis and a 3 mm left kidney lower pole stone . Principal Diagnosis Right ureteral stone Discharge Exam The patient is awake, alert and oriented 3, well developed and well nourished, normocephalic and atraumatic, lying in bed and in no acute distress. HEENT--PERRL, EOMI, mucous membranes and oropharynx normal. Neck--supple. No JVD. Heart--normal S1 and S2. No murmurs, rubs or gallops. Lungs--clear bilaterally, no respiratory distress, no accessory muscle use. Abdomen--normal bowel sounds and soft. No pain elicited post IV Dilaudid Extremities--no cyanosis or clubbing. No edema. Dermatologic--normal skin turgor, normal color, no abnormal lymph nodes, no rash. Neurologic--cranial nerves II through XII grossly intact. Rheumatologic--normal range of motion. Psychiatric--normal affect. Discharge Data Allergies Allergy/AdvReac Type Severity Reaction Status Date / Time iodine Allergy Unknown SKIN BLEEDS Verified 03/23/21 20:40 nitrofurantoin Allergy Unknown HIVES Verified 03/23/21 20:40 Consultations 03/23/21 22:59 ED Decision to Admit Stat 03/24/21 01:00 Consult Urology Routine Procedures Performed Operation Date: 03/24/21 09:00 Actual Procedures p Cystoscopy, Retrograde Pyelogram, Right Stent Placement, Ureteral Dilation, Basket Stone Extraction(Right) - Diallo Dye MD s Laser Lithotripsy Holmium(Right) - Diallo Dye MD Ordered Studies 03/23/21 20:05 US renal/blad retro comp Stat 03/24/21 [place] retrograde includes kub Routine 03/24/21 04:17 CT abd pelvis wo con Urgent Hospital Course (1) Right ureteral stone: Distal 6 mm right ureteral stone/mild right hydronephrosis- N.p.o. after midnight Ceftriaxone 1 g IV daily Follow urine culture and sensitivity Continue tamsulosin NSS + KCl 20 mEq at 100 mils per hour Acetaminophen 650 mg p.o. every 6 hours as needed mild pain or fever Dilaudid 0.5 mg IV every 3 hours as needed moderate pain Dilaudid 1 mg IV every 3 hours as needed severe pain Zofran 4 mg IV every 6 hours as needed Famotidine 20 mg IV every 12 hours Since 6 mm stone initially showing up on KUB x-ray on 03/19, and has not shown up on ultrasound of kidney this evening, will order CT scan abdomen pelvis without contrast for location Consult urology Later in hospital stay: Surgery was successful in removing the stones. OK for discharge home today if stable later in the afternoon. Pt will need to follow up in clinic in 1 week for stent removal. (2) Hydronephrosis, right: See above Total Time Total Time Spent Total Time Spent (In Minutes): 32 Discharge Plan Discharge Items Patient Disposition: Home - Self-Care Reason For Visit: right hydronephrosis, flank pain,renal calculus Discharge Diagnosis: right hydronephrosis, flank pain, renal calculus Activity: Resume your previous activity Non-emergency contact: Primary Care Provider Call non-emergency contact if: you have any medication questions Follow-up/Referrals: Reese Mitchell [Primary Care Provider] - Diet: Regular Addtl Attending Provider Instructions: Please follow up in Urology clinic in 1 week for stent removal. Pending Studies at Discharge: No Stand-Alone Forms: My [facility], Opioid Pain Management, Smoking Cessation Medications and DC Order Prescriptions: New acetaminophen 325 mg Tablet 650 mg PO Q4H PRN (Reason: MILD PAIN) Qty: 30 RF: 0 Continued digestive enzymes Capsule 1 cap PO TID RF: 0 cholecalciferol (vitamin D3) [Vitamin D3] 25 mcg (1,000 unit) Tablet 1,000 unit PO QDD RF: 0 Probiotic Blend 2 billion cell-50 mg Capsule 1 cap PO QAM RF: 0 ferrous sulfate [iron] 325 mg (65 mg iron) Tablet 325 mg PO QAM RF: 0 [place] Supplement 1 dose PO QAM RF: 0 cyanocobalamin (vitamin B-12) 1,000 mcg/mL solution 1,000 mcg IM WK RF: 0 ondansetron 4 mg tablet,disintegrating 4 mg PO Q4H PRN (Reason: Nausea And Vomiting) RF: 0 tamsulosin 0.4 mg capsule 0.4 mg PO QDD Qty: 14 RF: 0 Discontinued hydrocodone-acetaminophen [[place]] 5-325 mg Tablet 1 tab PO Q6H PRN (Reason: Pain) RF: 0 No Action hydrocodone-acetaminophen 5-325 mg tablet 1 tab PO Q8H PRN (Reason: Pain) Qty: 10 RF: 0 phenazopyridine [P[place]] 200 mg tablet 200 mg PO BID PRN (Reason: pain) Qty: 7 RF: 0 oxybutynin chloride 5 mg tablet 5 mg PO BID PRN (Reason: bladder spasms) Qty: 14 RF: 0 ketorolac 10 mg tablet 10 mg PO BID PRN (Reason: pain) 5 Days Qty: 10 RF: 0 Discharge Orders: Discharge Order (Routine); Ordered 03/24/21 Ordered By: Danish Arias Admission Data Admit Date/Time: 03/23/21 23:12 Attending Provider: Danish Arias Admit Provider: Gustavo Butts Primary Care Provider: Reese Mitchell Other Providers: Gustavo Butts ; Neri Goldberg. Other Interventions: Discharge Summary Assessment (RN) Last Done: 03/24/21 15:15 Coding Level of Care Code 62368 OBS Care - Discharge Diagnoses Right ureteral stone N20.1 Hydronephrosis, right N13.30
== END 2021-03-24 15:51 | disposition home or self-care (01) ==
LOC: ED 19:54 → 3N 23:12 → SUATTDRO 23:12 → INTOOBSV 23:12 → 3N 03-24 00:39